=== PATIENT | female | born 1995 | race Caucasian/White ===

== ENCOUNTER 2019-05-10 12:10 | Emergency (ER) | payer MEDICAID ==
[~2019-05-10] VITALS: Ht 149.8 cm; Wt 54.5 kg
[2019-05-10] MEDS ORDERED: KETOROLAC 60 MG/2 ML VIAL IM STA (12:32)
--- NOTE | 2019-05-10 12:32 | ED Upper Extremity ---
General Stated Complaint: NECK PAIN Source: patient Exam Limitations: physical impairment (ALEJANDRO HUFFMAN STUDENT) History of Present Illness Date Seen by Provider: May 10, 2019 Time Seen by Provider: 12:20 Initial Comments Patient presents to the ED today after falling backwards off of her porch while intoxicated last night around 2100. She states she landed on her left shoulder, followed by simultaneously landing on her back and neck. She has limited ROM in the left arm but full ROM on the right. She has been diagnosed in the passed with scoliosis. She claims she did not lose consciousness, however, she did have the wind knocked out of her. She has taken Motrin for the pain which seems to slightly alleviate the symptoms. Onset: yesterday Severity: mild Pain/Injury Location: left shoulder Method of Injury: fell Modifying Factors: Improves With Pain Medication (Motrin slightly alleviates the symptoms) (ALEJANDRO HUFFMAN STUDENT) Allergies and Home Medications Allergies Coded Allergies: acetaminophen (Verified Allergy, Unknown, 05/10/19) oxycodone (Verified Allergy, Unknown, 05/10/19) Patient Home Medication List Home Medication List Reviewed: Yes (HERMINIO CASTANON MD) Review of Systems Constitutional: no symptoms reported EENTM: no symptoms reported Respiratory: no symptoms reported Cardiovascular: no symptoms reported Gastrointestinal: no symptoms reported Genitourinary: no symptoms reported : No Musculoskeletal: see HPI Skin: see HPI Psychiatric/Neurological: No Symptoms Reported (ALEJANDRO HUFFMAN STUDENT) All Other Systems Reviewed Negative Unless Noted: Yes (HERMINIO CASTANON MD) Past Coqbqvp-Plttyh-Jcdrbi Hx Past Med/Social Hx: Reviewed Nursing Past Med/Soc Hx (HERMINIO CASTANON MD) Family Medical History Reviewed Nursing Family Hx (HERMINIO CASTANON MD) Physical Exam Vital Signs Vital Signs - First Documented 05/10/19 12:15 Temp 36.5 Pulse 110 Resp 20 B/P (MAP) 119/67 (84) Pulse Ox 98 O2 Delivery Room Air (HERMINIO CASTANON MD) Vital Signs Capillary Refill : (ALEJANDRO HUFFMAN STUDENT) Height, Weight, BMI Height: '" Weight: lbs. oz. kg; BMI Method: General Appearance: no apparent distress HEENT: PERRL/EOMI, pharynx normal Neck: limited range of motion, tender lateral, tender midline Cardiovascular: normal peripheral pulses, regular rate, rhythm, no edema, no gallop, no JVD, no murmur Respiratory: chest non-tender, lungs clear, normal breath sounds, no respiratory distress, no accessory muscle use Gastrointestinal: normal bowel sounds, non tender, soft, no organomegaly, no pu lsatile mass Back: vertebral tenderness Shoulder: bone tenderness, limited ROM, pain, soft tissue tenderness Elbow/Forearm: normal inspection Wrist: Yes normal inspection, Yes non-tender, Yes no evidence of injury, Yes normal ROM Hand: normal inspection, non-tender, no evidence of injury, normal ROM Neurologic/Tendon: normal sensation, normal motor functions, responds to pain, no evidence tendon injury Neurologic/Psychiatric: alert, normal mood/affect, oriented x 3 Skin: normal color, warm/dry Lymphatic: no adenopathy (ALEJANDRO HUFFMAN PA STUDENT) General Appearance: WD/WN, no apparent distress HEENT: PERRL/EOMI, pharynx normal Neck: full range of motion, limited range of motion; No lymphadenopathy (R), No lymphadenopathy (L); tender lateral Cardiovascular: regular rate, rhythm, no murmur Respiratory: lungs clear, normal breath sounds Gastrointestinal: non tender, soft Shoulder: No deformity; limited ROM (mildly), pain (lateral aspect), soft tissue tenderness (top and medially to the C-spine area); No swelling Elbow/Forearm: normal inspection Wrist: Yes normal inspection, Yes non-tender, Yes no evidence of injury, Yes normal ROM Hand: no evidence of injury, normal ROM, Right, Left Neurologic/Psychiatric: alert, oriented x 3 Skin: normal color, warm/dry (HERMINIO CASTANON MD) Progress/Results/Core Measures Results/Orders My Orders Orders - HERMINIO CASTANON MD Shoulder, Left, 3 Views (05/10/19 12:32) Cervical Spine 3 Views Or Less (05/10/19 12:32) Ketorolac Injection (Toradol Injection) (05/10/19 12:32) (HERMINIO CASTANON MD) Vital Signs/I&O 05/10/19 12:15 Temp 36.5 Pulse 110 Resp 20 B/P (MAP) 119/67 (84) Pulse Ox 98 O2 Delivery Room Air (HERMINIO CASTANON MD) Progress Progress Note : Progress Note I seen and evaluated the patient and agree with above except as indicated. Have directed the plan of care. Patient is here with left shoulder pain and neck pain after falling on her porch onto her back. Denies loss of consciousness. Has full range of motion of her upper extremities but does have pain from the left shoulder to the neck. Take ibuprofen this morning. That did not help much. Toradol 60 mg IM and x-ray of the left shoulder and C-spine ordered. Monitor patient. 1430: No acute findings. Pain is about the same. Discharged home with return precautions. Patient verbalize understanding instructions and agreement with plan. (HERMINIO CASTANON MD) Diagnostic Imaging Diagonstic Imaging: Xray Comments [facility] POS [place], [place] POS NAME: [facility] REC#: [id number] PT STATUS: REG ER : 1995 PHYSICIAN: HERMINIO CASTANON MD ADMIT DATE: 05/10/19/ER Draft POSDate of Exam:05/10/19 CERVICAL SPINE 3 VIEWS OR LESS INDICATION: Fall and neck pain. TIME OF EXAM: 1:05 PM. FINDINGS: Three views of the cervical spine were obtained. The curvature and alignment of the cervical spine are normal. The disc spaces are well-maintained. No fracture or subluxation is seen. The prevertebral tissues are within normal limits. The odontoid is intact. IMPRESSION: No acute bony abnormality is detected. Dictated on workstation # [id number] Dict: 05/10/19 1315 Trans: 05/10/19 1317 [id number] Interpreted by: KYLEE JONES MD Electronically signed by: Diagonstic Imaging: Xray Plain Films/CT/US/NM/MRI: other Comments [facility]. POS [place], [place] POS NAME: [facility] REC#: [id number] PT STATUS: REG ER : 1995 PHYSICIAN: HERMINIO CASTANON MD ADMIT DATE: 05/10/19/ER Draft POSDate of Exam:05/10/19 SHOULDER, LEFT, 3 VIEWS INDICATION: Fall and left shoulder pain. TIME OF EXAM: 01:08 p.m. FINDINGS: Three views of the left shoulder were obtained. Glenohumeral and acromioclavicular alignment is normal. Acromiohumeral space is normal. No fracture or dislocation is seen. IMPRESSION: No acute bony abnormality is detected. Dictated on workstation # [id number] Dict: 05/10/19 1314 Trans: 05/10/19 1316 [id number] Interpreted by: KYLEE JONES MD Electronically signed by: (HERMINIO CASTANON MD) Departure Impression Primary Impression: Neck sprain Qualified Codes: S13.9XXA - Sprain of joints and ligaments of unspecified parts of neck, initial encounter Additional Impression: Contusion of left shoulder Qualified Codes: S40.012A - Contusion of left shoulder, initial encounter Disposition: HOME, SELF-CARE Condition: Improved Departure-Patient Inst. Decision time for Depature: 14:33 (HERMINIO CASTANON MD) Referrals: NO,LOCAL PHYSICIAN (PCP) Primary Care Physician Patient Instructions: Cervical Muscle Strain (DC), Contusion (DC), Shoulder Sprain (DC) Add. Discharge Instructions: You may take ibuprofen 600 mg every 8 hours as needed for pain. You may take Tylenol/acetaminophen 1000 mg every 8 hours as needed for pain. Take other medications as prescribed. You may use [id number] Icy Hot with lidocaine patches, Aspercreme with lidocaine patches, Salonpas with lidocaine patches or similar items to area of concern per package directions. Return for worse pain, fever, vomiting, weakness, breathing problems or other concerns as needed. Scripts Cyclobenzaprine HCl (Cyclobenzaprine HCl) 10 Mg Tablet 10 MG PO Q8H PRN for SPASMS, #10 TAB 0 Refills Prov: HERMINIO CASTANON MD 05/10/19 ALEJANDRO HUFFMAN STUDENT May 10, 2019 12:32 HERMINIO RODRIGUEZ MD May 10, 2019 14:35 POS
--- NOTE | 2019-05-10 13:17 | Diagnostic Imaging Report ---
INDICATION: Fall and left shoulder pain. TIME OF EXAM: 01:08 p.m. FINDINGS: Three views of the left shoulder were obtained. Glenohumeral and acromioclavicular alignment is normal. Acromiohumeral space is normal. No fracture or dislocation is seen. IMPRESSION: No acute bony abnormality is detected. Dictated by: Dictated on workstation # [id number]
--- NOTE | 2019-05-10 13:17 | Diagnostic Imaging Report ---
INDICATION: Fall and neck pain. TIME OF EXAM: 1:05 PM. FINDINGS: Three views of the cervical spine were obtained. The curvature and alignment of the cervical spine are normal. The disc spaces are well-maintained. No fracture or subluxation is seen. The prevertebral tissues are within normal limits. The odontoid is intact. IMPRESSION: No acute bony abnormality is detected. Dictated by: Dictated on workstation # [id number]
[2019-05-10] MEDS ORDERED: CYCL10TA9 PO (14:37)
[2019-05-10 14:42] VITALS: BP 119/67
== END 2019-05-10 14:42 | disposition home or self-care (01) ==
LOC: EDUNIT# 12:10 → ER 12:11
DX: S13.9XXA Sprain of joints and ligaments of unspecified parts of neck, initial encounter (principal); S40.012A Contusion of left shoulder, initial encounter; Z88.6 Allergy status to analgesic agent; Z88.5 Allergy status to narcotic agent; W17.89XA Other fall from one level to another, initial encounter
CPT/HCPCS: 72040; 73030; 96372

== ENCOUNTER 2019-10-08 04:04 | Emergency (ER) | payer SELFPAY ==
[~2019-10-08] VITALS: Ht 149.8 cm; Wt 46.0 kg
[~2019-10-08 04:04] MED LIST: CYCL10TA9 PO
[2019-10-08] MEDS ORDERED: ORPHENADRINE 60 MG/2 ML (NORFLEX) AMP IM ONE (05:00)
[2019-10-08] MEDS ORDERED: KETOROLAC 30 MG/ML VIAL IM ONE (05:00)
[2019-10-08] MEDS ORDERED: TRIAMCINOLONE ACET (KENALOG-40) 40 MG/ML 1 ML VIAL IM ONE (05:45)
[2019-10-08] MEDS ORDERED: LIDOCAINE 1% INJ 20 ML 20 ML VIAL INJ ONE (05:45)
[2019-10-08] MEDS ORDERED: SODIUM BICARB 8.4% 50 MEQ/50 ML VIAL IV ONE (05:45)
--- NOTE | 2019-10-08 06:19 | ED General ---
General Chief Complaint: Upper Extremity Stated Complaint: RT SHOULDER PAIN THAT HAS MOVED TO LEFT SHOULDER T Nursing Triage Note: c/o left shoulder pain x1 day. reports pain started in right shoulder approx. 4 days ago. stated she woke up with pain. denies injury. seen at [facility] 10/08/2019 for same complaint did not fill rx. last dose motrin yesterday. Nursing Sepsis Screen: No Definite Risk Source of Information: Patient Exam Limitations: No Limitations History of Present Illness Date Seen by Provider: Oct 08, 2019 Time Seen by Provider: 04:11 Initial Comments This 24-year-old young lady presents to the emergency room with pain in the right shoulder and neck that started 4 days ago and pain in the left neck and shoulder that started yesterday. She presented to the [facility] walk-in clinic for her right-sided neck pain. She was prescribed a muscle relaxer for muscle spasm. She reports the dose given to her in the clinic was not helpful so she did not fill the prescription. She has been trying ibuprofen which she does not perceive as helpful. There was no known injury. She has extremely tight neck muscles with palpation, especially on the right side. Allergies and Home Medications Allergies Coded Allergies: acetaminophen (Verified Allergy, Unknown, 05/10/19) oxycodone (Verified Allergy, Unknown, 05/10/19) Home Medications Cyclobenzaprine HCl 10 Mg Tablet, 10 MG PO Q8H PRN for SPASMS Prescribed by: HERMINIO CASTANON on 05/10/19 1847 Prednisone 20 Mg Tab, 20 MG PO DAILY Prescribed by: JABIER FERRO on 10/08/19 0620 Patient Home Medication List Home Medication List Reviewed: Yes Review of Systems Review of Systems Constitutional: no symptoms reported EENTM: no symptoms reported Respiratory: no symptoms reported Cardiovascular: no symptoms reported Gastrointestinal: no symptoms reported Genitourinary: no symptoms reported Musculoskeletal: see HPI Skin: no symptoms reported Psychiatric/Neurological: No Symptoms Reported Hematologic/Lymphatic: No Symptoms Reported Immunological/Allergic: no symptoms reported Past Qdytwjz-Ahrkbl-Cbdowl Hx Past Med/Social Hx: Reviewed Nursing Past Med/Soc Hx Patient Social History Alcohol Use: Rarely Uses Recreational Drug Use: Yes Drug of Choice: meth iv Smoking Status: Current Everyday Smoker Type Used: Cigarettes 2nd Hand Smoke Exposure: Yes Recent Foreign Travel: No Contact w/Someone Who Travel: No Recent Infectious Disease Expo: No Recent Hopitalizations: No Physical Abuse: No Sexual Abuse: No Mistreated: No Fear: No Immunizations Up To Date Tetanus Booster (TDap): Unknown PED Vaccines UTD: Yes Seasonal Allergies Seasonal Allergies: No Past Medical History Surgeries: Yes (bmt) Tonsillectomy Respiratory: No Cardiac: No Neurological: No : No Last Menstrual Period: Oct 08, 2019 Genitourinary: No Gastrointestinal: No Musculoskeletal: Yes Scoliosis Endocrine: No HEENT: No Cancer: No Psychosocial: No Integumentary: No Blood Disorders: No Physical Exam Vital Signs Vital Signs - First Documented 10/08/19 04:25 Temp 36.3 Pulse 117 Resp 18 B/P (MAP) 116/95 (102) Pulse Ox 99 O2 Delivery Room Air Capillary Refill : Less Than 3 Seconds Height, Weight, BMI Height: '" Weight: lbs. oz. kg; 20.00 BMI Method: General Appearance: WD/WN, Moderate Distress HEENT: PERRL/EOMI, Normal ENT Inspection Neck: Other (Paraspinous muscles are extremely tense and tender, especially on the right. Trapezius muscles are also tight and tender, especially the distal third of the left trapezius.) Respiratory: Lungs Clear, Normal Breath Sounds, No Accessory Muscle Use, No Respiratory Distress Cardiovascular: Regular Rate, Rhythm, No Edema, No Murmur Extremity: Normal Inspection, Non Tender Neurologic/Psychiatric: Alert, Oriented x3, No Motor/Sensory Deficits, Normal Mood/Affect, pe teacher II-XII Norm as Tested Skin: Normal Color, Warm/Dry Procedures/Interventions Progress With verbal informed consent patient received targeted injection therapy in the right neck and left trapezius muscles. A mixture of triamcinolone 40 mg, 1 mL 1 percent lidocaine, and 0.5 ML sodium bicarbonate was used for the injections. This was divided roughly equally amongst 3 injections in the right paraspinous muscles and one injection at the most tender point in the left trapezius muscle. Skin was scrubbed with alcohol and chlorhexidine wipes prior to administration and sterile gloves were used. Patient had immediate relief within minutes of the injections. Progress/Results/Core Measures Suspected Sepsis Recent Fever Within 48 Hours: No Infection Criteria Present: None New/Unexplained Altered Menta: No Sepsis Screen: No Definite Risk SIRS Temperature: Pulse: 117 Respiratory Rate: 18 Blood Pressure 116 /95 Mean: 102 Results/Orders My Orders Orders - BRUEGGEMANN,JABIER T MD Ketorolac Injection (Toradol Injection) (10/08/19 05:00) Orphenadrine Injection (Norflex Injectio (10/08/19 05:00) Sodium Bicarbonate 8.4% Vial (Sodium Bic (10/08/19 05:45) Lidocaine 1% Inj 20 Ml (Xylocaine 1% Inj (10/08/19 05:45) Triamcinolone Acetonide Im (Kenalog-40) (10/08/19 05:45) Medications Given in ED Current Medications Medications Dose Ordered Sig/Aldo Route Start Time Stop Time Status Last Admin Dose Admin Ketorolac Tromethamine 30 mg ONCE ONCE IM 10/08/19 05:00 10/08/19 05:01 DC 10/08/19 05:04 30 MG Lidocaine HCl 20 ml ONCE ONCE INJ 10/08/19 05:45 10/08/19 05:46 DC 10/08/19 05:50 20 ML Orphenadrine Citrate 30 mg ONCE ONCE IM 10/08/19 05:00 10/08/19 05:01 DC 10/08/19 05:04 30 MG Sodium Bicarbonate 50 meq ONCE ONCE IV 10/08/19 05:45 10/08/19 05:46 DC 10/08/19 05:50 50 MEQ Triamcinolone Acetonide 40 mg ONCE ONCE IM 10/08/19 05:45 10/08/19 05:46 DC 10/08/19 05:50 40 MG Vital Signs/I&O 10/08/19 10/08/19 04:25 06:22 Temp 36.3 36.4 Pulse 117 116 Resp 18 18 B/P (MAP) 116/95 (102) 119/78 (102) Pulse Ox 99 98 O2 Delivery Room Air Room Air Capillary Refill : Less Than 3 Seconds Blood Pressure Mean: 102 Progress Note : Progress Note Patient was treated with injections of Toradol and Norflex with some improvement. We discussed further treatment possibilities including targeted m uscle injections. She wished to proceed with the targeted injections. A mixture of lidocaine, sodium bicarbonate, and triamcinolone was used to inject the right neck and left trapezius muscle. She had excellent results. Departure Impression Primary Impression: Muscle spasms of neck Additional Impression: Spasm of thoracic back muscle Disposition: HOME, SELF-CARE Condition: Improved Departure-Patient Inst. Decision time for Depature: 06:17 Referrals: NO,LOCAL PHYSICIAN (PCP/Family) Primary Care Physician Patient Instructions: Muscle Spasms (DC) Add. Discharge Instructions: You may take ibuprofen up to 400 mg every 6 hours as needed for primary pain co ntrol. Add Tylenol (acetaminophen) up to 650 mg every 6 hours as needed for additional pain relief. You may ice in 20 minute intervals as needed for the first 24 hours. Then try gentle heat. You may gently stretch your neck muscles by allowing gravity to gently pull your head forward. Gently massage in your neck muscles may help distribute the steroid for better results. You may use the sling for comfort. If you're not experiencing significant improvement by Friday, you may fill the prednisone prescription. You may use the muscle relaxer previously prescribed. Contact your doctor or return to care if symptoms are not improving as expected over the next few days or if you have worsening symptoms. All discharge instructions reviewed with patient and/or family. Voiced understanding. Scripts Prednisone (Prednisone) 20 Mg Tab 20 MG PO DAILY, #4 TAB 0 Refills Prov: JABIER SALAZAR MD 10/08/19 JABIER SALAZAR MD Oct 08, 2019 06:19
[2019-10-08] MEDS ORDERED: PRD20T PO (06:20)
[2019-10-08 06:22] VITALS: BP 119/78
== END 2019-10-08 06:26 | disposition home or self-care (01) ==
LOC: EDUNIT# 04:04 → ER 04:09
DX: M62.830 Muscle spasm of back (principal); M62.838 Other muscle spasm; F17.210 Nicotine dependence, cigarettes, uncomplicated; Z88.5 Allergy status to narcotic agent; Z90.89 Acquired absence of other organs
CPT/HCPCS: 96372; 96374; 99284

== ENCOUNTER 2020-02-15 22:02 | Emergency (ER) | payer SELFPAY ==
[~2020-02-15] VITALS: Ht 149 cm; Wt 46.0 kg
[~2020-02-15 22:02] MED LIST changes: +PRD20T PO
[2020-02-16] MEDS ORDERED: LACTATED RINGERS 1,000 ML IV ONE (02:17)
[2020-02-16 02:19] LABS: BASOPHILS % (AUTO) 0 % (0-10); EOSINOPHILS # (AUTO) 0.1 10^3/uL (0.0-0.3); EOSINOPHILS % (AUTO) 2 % (0-10); HEMATOCRIT 41 % (35-52); HEMOGLOBIN 13.6 G/DL (11.5-16.0); LYMPHOCYTES # (AUTO) 2.5 X 10^3 (1.0-4.0); LYMPHOCYTES % (AUTO) 36 % (12-44); MEAN CORPUSCULAR HEMOGLOBIN 30 PG (25-34); MEAN CORPUSCULAR HGB CONC 34 G/DL (32-36); MEAN CORPUSCULAR VOLUME 89 FL (80-99); MEAN PLATELET VOLUME 10.8 FL (7.4-10.4); MONOCYTES # (AUTO) 0.6 X 10^3 (0.0-1.0); MONOCYTES % (AUTO) 9 % (0-12); NEUTROPHILS # (AUTO) 3.6 X 10^3 (1.8-7.8); NEUTROPHILS % (AUTO) 53 % (42-75); PLATELET COUNT 282 10^3/uL (130-400); RED CELL DISTRIBUTION WIDTH 13.9 % (10.0-14.5); WHITE BLOOD COUNT 6.9 10^3/uL (4.3-11.0)
--- NOTE | 2020-02-16 02:35 | ED General ---
General Stated Complaint: HEAD/STOMACH PAIN,SOA Source of Information: Patient History of Present Illness Date Seen by Provider: Feb 16, 2020 Time Seen by Provider: 01:57 Initial Comments PT ARRIVES VIA POV STATES SHE IS "HAVING SHARP PAINS IN MY STOMACH AND IN MY HEAD" STATES PAIN IN HEAD IS ON LEFT SIDE OF HEAD AND "WHOLE LEFT SIDE OF MY FACE-LIKE SINUS PRESSURE" AND HEAD PAIN STARTED YESTERDAY STATES PAIN IN ABDOMEN IS ALL ACROSS LOWER ABDOMEN--THEN STATES "IT MIGHT BE BECAUSE I'M ON MY PERIOD--IT FEELS LIKE MY UTERUS" --ABDOMINAL PAIN BEGAN 2 HOURS PRIOR TO ARRIVAL NO NAUSEA/VOMITING/DIARRHEA. HAD NORMAL BM TODAY NO FEVER NO NASAL CONGESTION OR DRAINAGE NO CHEST PAIN OR SHORTNESS OF BREATH NO COUGH NO VISION CHANGES NO PARESTHESIAS OR MOTOR DEFICITS TOOK 2 IBUPROFEN YESTERDAY MORNING FOR HEADACHE, OTHERWISE HAS NOT TAKEN ANYTHING ELSE FOR PAIN LMP--BEGAN 4 DAYS AGO. 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 ALSO SMOKES 1/2 PPPD PCP: GLEN Allergies and Home Medications Allergies Coded Allergies: acetaminophen (Verified Allergy, Unknown, 05/10/19) oxycodone (Verified Allergy, Unknown, 05/10/19) Home Medications Cyclobenzaprine HCl 10 Mg Tablet, 10 MG PO Q8H PRN for SPASMS Prescribed by: HERMINIO CASTANON on 05/10/19 1437 Naproxen 500 Mg Tablet.dr, 500 MG PO BID Prescribed by: KAYLYN PRICE on 02/16/20 050 Nitrofurantoin Monohyd/M-Cryst 100 Mg Capsule, 1 TAB PO BID Prescribed by: KAYLYN PRICE on 02/16/20 050 Phenazopyridine HCl 200 Mg Tablet, 1 TAB PO TID Prescribed by: KAYLYN PRICE on 02/16/20 050 Prednisone 20 Mg Tab, 20 MG PO DAILY Prescribed by: JABIER FERRO on 10/08/19 0620 Patient Home Medication List Home Medication List Reviewed: Yes Review of Systems Review of Systems Constitutional: no symptoms reported; No chills, No diaphoresis, No dizziness, No fever EENTM: see HPI; No ear pain, No nose congestion, No throat pain Respiratory: no symptoms reported; No cough, No short of breath Cardiovascular: no symptoms reported; No chest pain Gastrointestinal: see HPI, abdominal pain; No diarrhea, No nausea, No vomiting Genitourinary: no symptoms reported : No LMP: Feb 12, 2020 Musculoskeletal: no symptoms reported; No back pain, No neck pain Skin: no symptoms reported Psychiatric/Neurological: See HPI, Headache; Denies Numbness, Denies Paresthesia, Denies Tingling, Denies Weakness Hematologic/Lymphatic: No Symptoms Reported Immunological/Allergic: no symptoms reported Past Oitleph-Ecgvkj-Kkktmu Hx Past Med/Social Hx: Reviewed and Corrections made Patient Social History Alcohol Use: Rarely Uses Recreational Drug Use: Yes (+IV METH USE) Drug of Choice: + IV METH USE Smoking Status: Current Everyday Smoker (1/2 PPD) Type Used: Cigarettes (1/2 PPD) 2nd Hand Smoke Exposure: Yes Recent Foreign Travel: No Contact w/Someone Who Travel: No Recent Hopitalizations: No Immunizations Up To Date Tetanus Booster (TDap): Unknown PED Vaccines UTD: Yes Seasonal Allergies Seasonal Allergies: No Past Medical History Surgeries: Yes (BMT'S) Ear Surgery, Tonsillectomy Respiratory: No Cardiac: No Neurological: Yes (TENSION HEADACHES) Headaches /Migraines Female Reproductive Disorders: Denies Genitourinary: No Gastrointestinal: Yes ("SEPTIC SHOCK FROM SMALL BOWEL OBSTRUCTION" --NO SURGERY) Obstructive Bowel Musculoskeletal: Yes Scoliosis Endocrine: No HEENT: Yes (S/P BMT'S AND TONSILLECTOMY) Chronic Ear Infection, Tonsilitis Cancer: No Psychosocial: No Integumentary: No Blood Disorders: No Physical Exam Vital Signs Vital Signs - First Documented 02/15/20 02/16/20 22:11 05:08 Temp 36.4 Pulse 89 Resp 18 B/P (MAP) 112/79 (90) Pulse Ox 98 O2 Delivery Room Air Capillary Refill : Height, Weight, BMI Height: '" Weight: lbs. oz. kg; 20.00 BMI Method: General Appearance: No Apparent Distress, WD/WN, Thin, Other (HAIR DYED AQUA COLOR, LEFT SIDE OF HEAD SHAVED) HEENT: PERRL/EOMI, TMs Normal, Normal ENT Inspection, Pharynx Normal, Other (TENDERNESS TO LEFT FOREHEAD AND LEFT MAXILLARY AREA) Neck: Full Range of Motion, Normal Inspection, Non Tender, Supple Respiratory: Chest Non Tender, Normal Breath Sounds, No Accessory Muscle Use, No Respiratory Distress Cardiovascular: Regular Rate, Rhythm, No Edema, No JVD, No Murmur, Normal Peripheral Pulses Gastrointestinal: Normal Bowel Sounds, No Organomegaly, No Pulsatile Mass, Soft; No Distended, No Guarding, No Hepatomegaly, No Hernia, No Mass, No Rebound; Tenderness (VERY MILD TENDERNESS TO DEEP PALPATION IN LUQ AND SUPRAPUBIC AREA. ) Back: Normal Inspection, No CVA Tenderness, No Vertebral Tenderness Extremity: Normal Capillary Refill, Normal Inspection, Normal Range of Motion, Non Tender, No Calf Tenderness, No Pedal Edema Neurologic/Psychiatric: Alert, Oriented x3, No Motor/Sensory Deficits, Normal Mood/Affect, anodizer II-XII Norm as Tested Skin: Normal Color, Warm/Dry Progress/Results/Core Measures Suspected Sepsis SIRS Temperature: Pulse: Respiratory Rate: Laboratory Tests 02/16/20 02:08: White Blood Count 6.9 Blood Pressure / Mean: Laboratory Tests 02/16/20 02:08: Creatinine 0.69, Platelet Count 282, Total Bilirubin 0.2 Results/Orders Lab Results Laboratory Tests Test 02/16/20 02:08 02/16/20 03:25 Range/Units White Blood Count 6.9 4.3-11.0 10^3/uL Red Blood Count 4.55 4.35-5.85 10^6/uL Hemoglobin 13.6 11.5-16.0 G/DL Hematocrit 41 35-52 % Mean Corpuscular Volume 89 80-99 FL Mean Corpuscular Hemoglobin 30 25-34 PG Mean Corpuscular Hemoglobin Concent 34 32-36 G/DL Red Cell Distribution Width 13.9 10.0-14.5 % Platelet Count 282 130-400 10^3/uL Mean Platelet Volume 10.8 H 7.4-10.4 FL Neutrophils (%) (Auto) 53 42-75 % Lymphocytes (%) (Auto) 36 12-44 % Monocytes (%) (Auto) 9 0-12 % Eosinophils (%) (Auto) 2 0-10 % Basophils (%) (Auto) 0 0-10 % Neutrophils # (Auto) 3.6 1.8-7.8 X 10^3 Lymphocytes # (Auto) 2.5 1.0-4.0 X 10^3 Monocytes # (Auto) 0.6 0.0-1.0 X 10^3 Eosinophils # (Auto) 0.1 0.0-0.3 10^3/uL Basophils # (Auto) 0.0 0.0-0.1 10^3/uL Sodium Level 142 135-145 MMOL/L Potassium Level 3.7 3.6-5.0 MMOL/L Chloride Level 108 H 98-107 MMOL/L Carbon Dioxide Level 22 21-32 MMOL/L Anion Gap 12 5-14 MMOL/L Blood Urea Nitrogen 15 7-18 MG/DL Creatinine 0.69 0.60-1.30 MG/DL Estimat Glomerular Filtration Rate > 60 BUN/Creatinine Ratio 22 Glucose Level 118 H 70-105 MG/DL Calcium Level 9.2 8.5-10.1 MG/DL Corrected Calcium 8.9 8.5-10.1 MG/DL Magnesium Level 2.3 1.6-2.4 MG/DL Total Bilirubin 0.2 0.1-1.0 MG/DL Aspartate Amino Transf (AST/SGOT) 17 5-34 U/L Alanine Aminotransferase (ALT/SGPT) 13 0-55 U/L Alkaline Phosphatase 66 40-136 U/L Total Protein 7.5 6.4-8.2 GM/DL Albumin 4.4 3.2-4.5 GM/DL Amylase Level 38 25-125 U/L Lipase 29 8-78 U/L Serum Test, Qualitative NEGATIVE NEGATIVE Serum Alcohol < 10 <10 MG/DL Urine Color YELLOW Urine Clarity CLOUDY Urine pH 7.0 5-9 Urine Specific Orange 1.020 1.016-1.022 Urine Protein NEGATIVE NEGATIVE Urine Glucose (UA) NEGATIVE NEGATIVE Urine Ketones TRACE H NEGATIVE Urine Nitrite NEGATIVE NEGATIVE Urine Bilirubin NEGATIVE NEGATIVE Urine Urobilinogen 0.2 < = 1.0 MG/DL Urine Leukocyte Esterase NEGATIVE NEGATIVE Urine RBC (Auto) 2+ H NEGATIVE Urine RBC 0-2 /HPF Urine WBC 2-5 /HPF Urine Squamous Epithelial Cells 0-2 /HPF Urine Crystals NONE /LPF Urine Bacteria FEW H /HPF Urine Casts NONE /LPF Urine Mucus SMALL H /LPF Urine Other /HPF Urine Yeast FEW H /HPF Urine Culture Indicated YES Urine Opiates Screen NEGATIVE NEGATIVE Urine Oxycodone Screen NEGATIVE NEGATIVE Urine Methadone Screen NEGATIVE NEGATIVE Urine Propoxyphene Screen NEGATIVE NEGATIVE Urine Barbiturates Screen NEGATIVE NEGATIVE Ur Tricyclic Antidepressants Screen NEGATIVE NEGATIVE Urine Phencyclidine Screen NEGATIVE NEGATIVE Urine Amphetamines Screen POSITIVE H NEGATIVE Urine Methamphetamines Screen NEGATIVE NEGATIVE Urine Benzodiazepines Screen NEGATIVE NEGATIVE Urine Cocaine Screen NEGATIVE NEGATIVE Urine Cannabinoids Screen NEGATIVE NEGATIVE My Orders Orders - KAYLYN PRICE DO Ed Iv/Invasive Line Start (02/16/20 02:06) Urine Bedside (02/16/20 02:06) Alcohol (02/16/20 02:06) Amylase (02/16/20 02:06) Cbc With Automated Diff (02/16/20 02:06) Comprehensive Metabolic Panel (02/16/20 02:06) Drug Screen Stat (Urine) (02/16/20 02:06) Lipase (02/16/20 02:06) Magnesium (02/16/20 02:06) Ua Culture If Indicated (02/16/20 02:06) Ed Iv/Invasive Line Start (02/16/20 02:17) Lactated Ringers (Lr 1000 Ml Iv Solution (02/16/20 02:17) Hcg,Qualitative Serum (02/16/20 02:51) Ct Abdomen/Pelvis W (02/16/20 03:20) Ketorolac Injection (Toradol Injection) (02/16/20 03:30) Urine Culture (02/16/20 03:25) Iohexol Injection (Omnipaque 350 Mg/Ml 1 (02/16/20 04:15) Received Contrast (Hold Metformin- Contr (02/16/20 04:15) Ns (Ivpb) (Sodium Chloride 0.9% Ivpb Bag (02/16/20 04:15) Medications Given in ED Current Medications Medications Dose Ordered Sig/Aldo Route Start Time Stop Time Status Last Admin Dose Admin Iohexol 100 ml ONCE ONCE IV 02/16/20 04:15 02/16/20 04:16 DC 02/16/20 04:05 75 ML Ketorolac Tromethamine 30 mg ONCE ONCE IVP 02/16/20 03:30 02/16/20 03:31 DC 02/16/20 04:05 30 MG Lactated Ringer's 1,000 ml @ 0 mls/hr Q0M ONCE IV 02/16/20 02:17 02/16/20 02:18 DC 02/16/20 02:33 0 MLS/HR Sodium Chloride 100 ml ONCE ONCE IV 02/16/20 04:15 02/16/20 04:16 DC 02/16/20 04:05 80 ML Vital Signs/I&O 02/15/20 02/16/20 22:11 05:08 Temp 36.4 36.4 Pulse 89 76 Resp 18 16 B/P (MAP) 112/79 (90) 90/51 (90) Pulse Ox 98 O2 Delivery Room Air Room Air Capillary Refill : Progress Note : Progress Note GIVEN TORADOL FOR PAIN WITH IMPROVEMENT NO DETERIORATION IN PT'S CONDITION DURING ER STAY PT SLEPT SOUNDLY FOR REMAINDER OF ER STAY Diagnostic Imaging Comments CT ABDOMEN/PELVIS--NO ACUTE PROCESS, PER RADIOLOGIST REPORT AT 0442 Reviewed: Reviewed by Me Departure Impression Primary Impression: Urinary tract infection Additional Impression: Illicit drug use Disposition: HOME, SELF-CARE Condition: Improved Departure-Patient Inst. Referrals: NO,LOCAL PHYSICIAN (PCP/Family) Primary Care Physician Patient Instructions: Urinary Tract Infection, Adult (DC) Add. Discharge Instructions: HOME, REST LOTS OF CLEAR LIQUIDS--NO COFFEE, POP OR TEA NO DRUGS FOLLOW UP WITH YOUR DR IN 4-5 DAYS FOR FURTHER CARE Scripts Naproxen (Naproxen) 500 Mg Tablet.dr 500 MG PO BID, #20 TAB Prov: KAYLYN PRICE DO 02/16/20 Phenazopyridine HCl (Pyridium) 200 Mg Tablet 1 TAB PO TID, #15 TAB Prov: KAYLYN PRICE DO 02/16/20 Nitrofurantoin Monohyd/M-Cryst (Macrobid 100 mg Capsule) 100 Mg Capsule 1 TAB PO BID, #20 CAP Prov: KAYLYN PRICE DO 02/16/20 KAYLYN PRICE DO Feb 16, 2020 02:35
[2020-02-16 02:48] LABS: ALANINE AMINOTRANSFERASE 13 U/L (0-55); ALBUMIN 4.4 GM/DL (3.2-4.5); ALKALINE PHOSPHATASE 66 U/L (40-136); AMYLASE 38 U/L (25-125); BILIRUBIN,TOTAL 0.2 MG/DL (0.1-1.0); BUN/CREATININE RATIO 22; CALCIUM 9.2 MG/DL (8.5-10.1); CARBON DIOXIDE 22 MMOL/L (21-32); CHLORIDE 108 MMOL/L (98-107); CREATININE SERUM 0.69 MG/DL (0.60-1.30); GFR ESTIMATED > 60; GLUCOSE 118 MG/DL (70-105); LIPASE 29 U/L (8-78); MAGNESIUM 2.3 MG/DL (1.6-2.4); POTASSIUM 3.7 MMOL/L (3.6-5.0); SODIUM 142 MMOL/L (135-145); TOTAL PROTEIN 7.5 GM/DL (6.4-8.2)
[2020-02-16] MEDS ORDERED: KETOROLAC 30 MG/ML VIAL IVP ONE (03:30)
[2020-02-16 03:38] LABS: BILIRUBIN,URINE NEGATIVE (NEGATIVE); CLARITY,URINE CLOUDY; COLOR,URINE YELLOW; GLUCOSE, URINE (UA) NEGATIVE (NEGATIVE); KETONES,URINE TRACE (NEGATIVE); LEUKOCYTE ESTERASE ,URINE NEGATIVE (NEGATIVE); NITRITE,URINE NEGATIVE (NEGATIVE); PROTEIN,URINE NEGATIVE (NEGATIVE)
[2020-02-16 03:48] LABS: BACTERIA,URINE FEW /HPF; RBC,URINE 0-2 /HPF; SQUAMOUS EPITHELIAL CELL,UR 0-2 /HPF; YEAST,URINE FEW /HPF
[2020-02-16 03:50] LABS: AMPHETAMINE SCREEN, URINE POSITIVE (NEGATIVE); BARBITURATE SCREEN URINE NEGATIVE (NEGATIVE); BENZODIAZEPINES SCREEN URINE NEGATIVE (NEGATIVE); CANNABINOID SCREEN, URINE NEGATIVE (NEGATIVE); COCAINE SCREEN URINE NEGATIVE (NEGATIVE); METHADONE STAT NEGATIVE (NEGATIVE); METHAMPHETAMINE SCREEN URINE S NEGATIVE (NEGATIVE); OPIATE SCREEN URINE NEGATIVE (NEGATIVE); OXYCODONE STAT NEGATIVE (NEGATIVE); PROPOXYPHENE STAT NEGATIVE (NEGATIVE); TRICYCLIC ANTIDEPRESSANTS SCRE NEGATIVE (NEGATIVE)
[2020-02-16] MEDS ORDERED: NS 100 ML (IVPB) BAG IV ONE (04:15)
[2020-02-16] MEDS ORDERED: IOHEXOL 350 MG/ML 100 ML (OMNIPAQUE 350) VIAL IV ONE (04:15)
[2020-02-16] MEDS ORDERED: HOLD METFORMIN - RECEIVED CONTRAST 20 ML VIAL IV SCH (04:15)
[2020-02-16] MEDS ORDERED: PHEN-640 PO ×2 (04:52→05:07)
[2020-02-16] MEDS ORDERED: NAPR500T8 PO ×2 (04:52→05:07)
[2020-02-16] MEDS ORDERED: NITR-65 PO ×2 (04:52→05:07)
[2020-02-16 05:08] VITALS: BP 90/51
--- NOTE | 2020-02-16 07:22 | Diagnostic Imaging Report ---
PROCEDURE: CT abdomen and pelvis with contrast. TECHNIQUE: Multiple contiguous axial images were obtained through the abdomen and pelvis after administration of intravenous contrast. Auto Exposure Controls were utilized during the CT exam to meet ALARA standards for radiation dose reduction. INDICATION: Sharp abdominal pain. FINDINGS: Lung bases are clear. There is mild fatty infiltration of the liver. Gallbladder is not distended. Bile ducts are not dilated. The pancreas and spleen appear normal. The adrenal glands are normal. Kidneys appear normal. There is normal enhancement of the abdominal organs and vessels following IV contrast. The stomach is not distended. There are multiple fluid-filled loops of small bowel in the left upper quadrant. Question of mild diffuse thickening of the jejunal bowel wall. The ileum appears normal. The appendix is not dilated. The colon shows normal stooling gas pattern without bowel wall thickening. No findings to indicate colitis or diverticulitis. Uterus is not enlarged. There are no pelvic masses. Bladder appears normal. No free air or free fluid. No intra-abdominal adenopathy of pathologic size. No bony abnormalities. IMPRESSION: Fluid-filled loops of proximal small bowel with question of mild bowel wall thickening in the jejunum. This could be secondary to enteritis or mild inflammatory changes. The remainder of the abdomen appears normal. These findings were not mentioned on the preliminary report. Dictated by: Dictated on workstation # [id number]
== END 2020-02-16 05:09 | disposition home or self-care (01) ==
LOC: EDUNIT# 22:02 → ER 22:03
DX: N39.0 Urinary tract infection, site not specified (principal); F15.10 Other stimulant abuse, uncomplicated; G43.909 Migraine, unspecified, not intractable, without status migrainosus; F17.210 Nicotine dependence, cigarettes, uncomplicated; Z88.5 Allergy status to narcotic agent; Z79.52 Long term (current) use of systemic steroids
CPT/HCPCS: 74177; 80053; 80306; 81000; 82150; 83690; 83735; 84703; 85025; 87088; 99284; G0480; 36415; 80320; 96361; 96374

== ENCOUNTER 2020-02-20 14:38 | Emergency (ER) | payer SELFPAY ==
[~2020-02-20] VITALS: Ht 152 cm; Wt 46.0 kg
[~2020-02-20 14:38] MED LIST changes: +NAPR500T8 PO; +NITR-65 PO; +PHEN-640 PO
--- NOTE | 2020-02-20 14:58 | ED Upper Extremity ---
General Chief Complaint: Laceration Stated Complaint: L HAND LAC Nursing Triage Note: c/o laceration to fingers on left hand Nursing Sepsis Screen: No Definite Risk Source: patient Exam Limitations: no limitations History of Present Illness Date Seen by Provider: Feb 20, 2020 Time Seen by Provider: 14:56 Initial Comments To ER with c/o laceration from hedge trimmers to midde and ring finger left hand. 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 Onset: just prior to arrival Severity: moderate Pain/Injury Location: left 3rd finger, left 4th finger Method of Injury: direct blow Modifying Factors: Worse With Movement Allergies and Home Medications Allergies Coded Allergies: acetaminophen (Verified Allergy, Unknown, 05/10/19) oxycodone (Verified Allergy, Unknown, 05/10/19) Home Medications Cyclobenzaprine HCl 10 Mg Tablet, 10 MG PO Q8H PRN for SPASMS Prescribed by: HERMINIO CASTANON on 05/10/19 1437 Naproxen 500 Mg Tablet.dr, 500 MG PO BID Prescribed by: KAYLYN PRICE on 02/16/20 050 Nitrofurantoin Monohyd/M-Cryst 100 Mg Capsule, 1 TAB PO BID Prescribed by: KAYLYN PRICE on 02/16/20 050 Phenazopyridine HCl 200 Mg Tablet, 1 TAB PO TID Prescribed by: KAYLYN PRICE on 02/16/20 050 Prednisone 20 Mg Tab, 20 MG PO DAILY Prescribed by: JABIER FERRO on 10/08/19 0620 Patient Home Medication List Home Medication List Reviewed: Yes Review of Systems Constitutional: see HPI EENTM: see HPI Respiratory: no symptoms reported Cardiovascular: no symptoms reported Genitourinary: no symptoms reported Musculoskeletal: see HPI Skin: see HPI Psychiatric/Neurological: No Symptoms Reported Past Kklxyci-Kyojhb-Zpyraa Hx Patient Social History Alcohol Use: Occasionally Uses Recreational Drug Use: Yes Drug of Choice: + IV METH USE Type Used: Cigarettes 2nd Hand Smoke Exposure: Yes Recent Foreign Travel: No Contact w/Someone Who Travel: No Recent Infectious Disease Expo: No Recent Hopitalizations: No Immunizations Up To Date Tetanus Booster (TDap): Unknown PED Vaccines UTD: Yes Seasonal Allergies Seasonal Allergies: No Past Medical History Surgeries: Yes (BMT'S) Ear Surgery, Tonsillectomy Respiratory: No Cardiac: No Neurological: Yes (TENSION HEADACHES) Headaches /Migraines Female Reproductive Disorders: Denies Genitourinary: No Gastrointestinal: Yes ("SEPTIC SHOCK FROM SMALL BOWEL OBSTRUCTION" --NO SURGERY) Obstructive Bowel Musculoskeletal: Yes Scoliosis Endocrine: No HEENT: Yes (S/P BMT'S AND TONSILLECTOMY) Chronic Ear Infection, Tonsilitis Cancer: No Psychosocial: Yes ADD/ADHD, Anxiety, Depression Integumentary: No Blood Disorders: No Physical Exam Vital Signs Vital Signs - First Documented 02/20/20 14:41 Temp 36.2 Pulse 104 Resp 18 B/P (MAP) 120/75 (90) Pulse Ox 98 Capillary Refill : Less Than 3 Seconds Height, Weight, BMI Height: '" Weight: lbs. oz. kg; 19.00 BMI Method: General Appearance: WD/WN, no apparent distress, thin, other (anxious, appears under the influence of stimulant. ) Neck: non-tender, full range of motion Respiratory: normal breath sounds, no respiratory distress, no accessory muscle use Gastrointestinal: normal bowel sounds, non tender Shoulder: normal inspection, non-tender Elbow/Forearm: normal inspection, non-tender, no evidence of injury Hand: Left, laceration Neurologic/Psychiatric: alert, normal mood/affect, oriented x 3 Skin: normal color, warm/dry Progress/Results/Core Measures Results/Orders My Orders Orders - HERO MAYORGA APRN Dipht,Pertgonzalo(Acell),Tet Adult (Boostrix (02/20/20 15:00) Lidocaine 1% Inj 20 Ml (Xylocaine 1% Inj (02/20/20 15:00) Medications Given in ED Current Medications Medications Dose Ordered Sig/Aldo Route Start Time Stop Time Status Last Admin Dose Admin Diphtheria/ Tetanus/Acell Pertussis 0.5 ml ONCE ONCE IM 02/20/20 15:00 02/20/20 15:01 DC 02/20/20 15:31 0.5 ML Lidocaine HCl 20 ml ONCE ONCE INJ 02/20/20 15:00 02/20/20 15:01 DC 02/20/20 15:20 20 ML Vital Signs/I&O 02/20/20 14:41 Temp 36.2 Pulse 104 Resp 18 B/P (MAP) 120/75 (90) Pulse Ox 98 Blood Pressure Mean: 90 Departure Communication (Admissions) 1.5cm laceration to distal pad of middle and ring finger for total of 3cm. depth to sub q tissues. digital block done with 8ml of buffered 1% lidocaine without epi. Closed with total of 7 simple interrupted sutures size 5-0 ethilon. Impression Primary Impression: Finger laceration Qualified Codes: S61.213A - Laceration without foreign body of left middle finger without damage to nail, initial encounter Disposition: 01 HOME, SELF-CARE Condition: Stable Departure-Patient Inst. Decision time for Depature: 14:57 Referrals: [facility] [place] (PCP/Family) Primary Care Physician Patient Instructions: Laceration Repair With Stitches (DC) Add. Discharge Instructions: 1. keep stitches clean and dry. return to er in 10 days for stitch removal. you may take the bandage off tomorrow and replace with a simple bandaid. return to er for any concerns All discharge instructions reviewed with patient and/or family. Voiced understanding. Scripts Acetaminophen/Diphenhydramine (Percogesic 325-12.5 mg Tablet) 1 Each Tablet 2 EACH PO Q4H PRN for PAIN-MODERATE (5-7), #14 TAB Prov: HERO MAYORGA APRN 02/20/20 HERO MAYORGA APRN Feb 20, 2020 14:58
[2020-02-20] MEDS ORDERED: LIDOCAINE 1% INJ 20 ML 20 ML VIAL INJ ONE (15:00)
[2020-02-20] MEDS ORDERED: TETANUS,DIPTH,PERTUSS P/F (BOOSTRIX) 0.5 ML VIAL IM ONE (15:00)
[2020-02-20] MEDS ORDERED: ACET-1672 PO (15:37)
[2020-02-20 15:49] VITALS: BP 120/75
== END 2020-02-20 15:49 | disposition home or self-care (01) ==
LOC: EDUNIT# 14:38 → ER 14:39
DX: S61.213A Laceration without foreign body of left middle finger without damage to nail, initial encounter (principal); S61.215A Laceration without foreign body of left ring finger without damage to nail, initial encounter; G43.909 Migraine, unspecified, not intractable, without status migrainosus; Z88.6 Allergy status to analgesic agent; Z88.5 Allergy status to narcotic agent; Z79.52 Long term (current) use of systemic steroids; Z77.22 Contact with and (suspected) exposure to environmental tobacco smoke (acute) (chronic); Z23 Encounter for immunization; W29.3XXA Contact with powered garden and outdoor hand tools and machinery, initial encounter
CPT/HCPCS: 12002; 12031; 64450; 90715

== ENCOUNTER 2020-05-16 13:15 | Inpatient (IN) | payer SELFPAY ==
[~2020-05-16] VITALS: Ht 149.8 cm; Wt 44.8 kg
[~2020-05-16 13:15] MED LIST changes: +ACET-1672 PO
--- NOTE | 2020-05-16 14:40 | NUR ---
Medical student reports that pt reported to student that pt had COVID exposure about one week ago and has lost smell and taste.
[2020-05-16 14:59] LABS: BASOPHILS # (AUTO) 0.1 10^3/uL (0.0-0.1); BASOPHILS % (AUTO) 0 % (0-10); EOSINOPHILS # (AUTO) 0.1 10^3/uL (0.0-0.3); EOSINOPHILS % (AUTO) 0 % (0-10); HEMATOCRIT 43 % (35-52); HEMOGLOBIN 14.1 g/dL (11.5-16.0); LYMPHOCYTES # (AUTO) 1.8 10^3/uL (1.0-4.0); LYMPHOCYTES % (AUTO) 10 % (12-44); MEAN CORPUSCULAR HEMOGLOBIN 29 pg (25-34); MEAN CORPUSCULAR HGB CONC 33 g/dL (32-36); MEAN CORPUSCULAR VOLUME 89 fL (80-99); MEAN PLATELET VOLUME 10.4 fL (9.0-12.2); MONOCYTES % (AUTO) 5 % (0-12); NEUTROPHILS # (AUTO) 14.8 10^3/uL (1.8-7.8); NEUTROPHILS % (AUTO) 83 % (42-75); PLATELET COUNT 328 10^3/uL (130-400); WHITE BLOOD COUNT 17.8 10^3/uL (4.3-11.0)
[2020-05-16 15:04] LABS: ALBUMIN 4.7 GM/DL (3.2-4.5); CHLORIDE 100 MMOL/L (98-107); POTASSIUM 3.9 MMOL/L (3.6-5.0); SODIUM 136 MMOL/L (135-145)
[2020-05-16 15:06] LABS: CALCIUM 9.8 MG/DL (8.5-10.1)
[2020-05-16 15:07] LABS: GLUCOSE 91 MG/DL (70-105); TOTAL PROTEIN 8.5 GM/DL (6.4-8.2)
[2020-05-16 15:08] LABS: CARBON DIOXIDE 24 MMOL/L (21-32)
[2020-05-16 15:09] LABS: BILIRUBIN,TOTAL 0.5 MG/DL (0.1-1.0)
[2020-05-16 15:10] LABS: ALKALINE PHOSPHATASE 84 U/L (40-136); CREATININE SERUM 0.73 MG/DL (0.60-1.30); GFR ESTIMATED > 60
[2020-05-16 15:11] LABS: BUN/CREATININE RATIO 18
[2020-05-16 15:11] LABS: BILIRUBIN,URINE NEGATIVE (NEGATIVE); CLARITY,URINE CLEAR; COLOR,URINE YELLOW; GLUCOSE, URINE (UA) NEGATIVE (NEGATIVE); KETONES,URINE 2+ (NEGATIVE); LEUKOCYTE ESTERASE ,URINE 1+ (NEGATIVE); NITRITE,URINE NEGATIVE (NEGATIVE); PH,URINE 8.5 (5-9); PROTEIN,URINE NEGATIVE (NEGATIVE)
[2020-05-16 15:13] LABS: ALANINE AMINOTRANSFERASE 14 U/L (0-55)
[2020-05-16 15:14] LABS: LIPASE 18 U/L (8-78)
[2020-05-16 15:15] LABS: BAND NEUTROPHILS 7 %; BASOPHILS % (MANUAL) 1 %; EOSINOPHILS % (MANUAL) 0 %; LYMPHOCYTES % (MANUAL) 15 %; MONOCYTES % (MANUAL) 4 %; NEUTROPHILS % (MANUAL) 73 %; RBC MORPH NORMAL
[2020-05-16 15:42] LABS: RBC,URINE 0-2 /HPF; WBC,URINE 25-50 /HPF
[2020-05-16 15:43] LABS: BACTERIA,URINE TRACE /HPF
[2020-05-16 15:49] LABS: AMPHETAMINE SCREEN, URINE POSITIVE (NEGATIVE); BARBITURATE SCREEN URINE NEGATIVE (NEGATIVE); BENZODIAZEPINES SCREEN URINE NEGATIVE (NEGATIVE); CANNABINOID SCREEN, URINE NEGATIVE (NEGATIVE); COCAINE SCREEN URINE NEGATIVE (NEGATIVE); METHADONE STAT NEGATIVE (NEGATIVE); METHAMPHETAMINE SCREEN URINE S POSITIVE (NEGATIVE); OPIATE SCREEN URINE NEGATIVE (NEGATIVE); OXYCODONE STAT NEGATIVE (NEGATIVE); PROPOXYPHENE STAT NEGATIVE (NEGATIVE); TRICYCLIC ANTIDEPRESSANTS SCRE NEGATIVE (NEGATIVE)
[2020-05-16] MEDS ORDERED: LACTATED RINGERS 1,000 ML IV ONE ×2 (15:54→18:11)
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
[2020-05-16] MEDS ORDERED: fentaNYL INJECTION 100 MCG/2 ML AMP IVP ONE (16:00)
[2020-05-16] MEDS ORDERED: HOLD METFORMIN - RECEIVED CONTRAST 20 ML VIAL IV SCH (16:00)
[2020-05-16] MEDS ORDERED: NS 100 ML (IVPB) BAG IV ONE (16:00)
[2020-05-16] MEDS ORDERED: IOHEXOL 350 MG/ML 100 ML (OMNIPAQUE 350) VIAL IV ONE (16:00)
--- NOTE | 2020-05-16 16:29 | Diagnostic Imaging Report ---
PROCEDURE: CT abdomen and pelvis with contrast, rule out appendicitis. TECHNIQUE: Multiple contiguous axial images were obtained through the abdomen and pelvis after the administration of intravenous contrast. All CT scans use one or more of the following dose optimizing techniques: automated exposure control, MA and/or KvP adjustment based on patient size and exam type or iterative reconstruction. INDICATION: Abdominal pain. COMPARISON: Correlation is made with prior CT from 02/16/2020. FINDINGS: The lung bases are clear. No discrete liver mass is detected. The gallbladder is unremarkable. No biliary ductal dilatation is seen. The pancreas and spleen are unremarkable. No adrenal mass is detected. Kidneys are unremarkable. Aorta is nonaneurysmal. Small and large bowel loops are normal in caliber. Appendix is visualized in the right lower quadrant. The appendix does not appear to be appreciably thick walled and no periappendiceal inflammation is present. Bladder and uterus are unremarkable. There is 11 mm follicle in the right ovary. No free fluid or fluid collection is seen. IMPRESSION: Essentially unremarkable CT of the abdomen and pelvis. There is no acute feature identified. Specifically, there is no CT evidence of acute appendicitis. Dictated by: Dictated on workstation # [id number]
[2020-05-16] MEDS ORDERED: KETOROLAC 30 MG/ML VIAL IVP ONE (16:45)
[2020-05-16] MEDS ORDERED: cefTRIAXone FOR IV USE 1,000 MG in WATER (STERILE) FOR INJECTION 10 ML IV ONE (18:15)
[2020-05-16] MEDS ORDERED: AZITHROMYCIN 250 MG TAB (ZITHROMAX) PO ONE (18:15)
--- NOTE | 2020-05-16 19:18 | NUR ---
Pt requested this nurse call pt's mother.
[2020-05-16 19:59] VITALS: BP 98/59
--- NOTE | 2020-05-16 20:04 | NUR ---
TAMEKA HICKS admitted to room 418-1, with an admitting diagnosis of SEPSIS, PID, on 05/16/20 from ED via wheelchair, accompanied by staff.TAMEKA HICKS introduced to surroundings, call light, bed controls, phone, TV, temperature control, lights, meal times, smoking policy, visitor policy, side rail policy, bathrooms and showers. Patient Rights given to patient in the handbook. TAMEKA HICKS verbalizes understanding that [facility] is not responsible for the loss or damage to any personal effects or valuables that are kept in the patients posession during their hospitalization. TAMEKA HICKS verbalizes understanding of Interdisciplinary Patient Education. Patient and/or family were informed about the Rapid Response Team and its purpose.
[2020-05-16] MEDS ORDERED: ONDANSETRON 4 MG/2 ML (SDV) Z0FRAN IV PRN (20:15)
[2020-05-16] MEDS ORDERED: CATHETER FLUSH 10 ML SYR IV PRN (20:30)
[2020-05-16] MEDS: LACTATED RINGERS 1,000 ML IV SCH (21:20)
[2020-05-16] MEDS: DOXYCYCLINE INJECTION 100 MG in NS (IVPB) 100 ML IV SCH (21:20)
[2020-05-16] MEDS: fentaNYL INJECTION 100 MCG/2 ML AMP IV PRN (23:51)
[2020-05-17] VITALS: BP 127/78
[2020-05-17 04:00] VITALS: BP 97/67
[2020-05-17] MEDS: LACTATED RINGERS 1,000 ML IV SCH ×3 (04:40→18:11)
[2020-05-17 05:51] LABS: BASOPHILS # (AUTO) 0.1 10^3/uL (0.0-0.1); BASOPHILS % (AUTO) 0 % (0-10); EOSINOPHILS % (AUTO) 0 % (0-10); HEMATOCRIT 33 % (35-52); HEMOGLOBIN 11.1 g/dL (11.5-16.0); LYMPHOCYTES # (AUTO) 1.9 10^3/uL (1.0-4.0); LYMPHOCYTES % (AUTO) 8 % (12-44); MEAN CORPUSCULAR HEMOGLOBIN 30 pg (25-34); MEAN CORPUSCULAR HGB CONC 33 g/dL (32-36); MEAN CORPUSCULAR VOLUME 89 fL (80-99); MEAN PLATELET VOLUME 10.8 fL (9.0-12.2); MONOCYTES # (AUTO) 0.8 10^3/uL (0.0-1.0); MONOCYTES % (AUTO) 4 % (0-12); NEUTROPHILS # (AUTO) 20.3 10^3/uL (1.8-7.8); NEUTROPHILS % (AUTO) 87 % (42-75); PLATELET COUNT 234 10^3/uL (130-400); WHITE BLOOD COUNT 23.2 10^3/uL (4.3-11.0)
[2020-05-17 06:05] LABS: CHLORIDE 103 MMOL/L (98-107); POTASSIUM 3.3 MMOL/L (3.6-5.0); SODIUM 134 MMOL/L (135-145)
[2020-05-17 06:06] LABS: CALCIUM 8.4 MG/DL (8.5-10.1)
[2020-05-17 06:07] LABS: GLUCOSE 130 MG/DL (70-105)
[2020-05-17 06:08] LABS: CARBON DIOXIDE 22 MMOL/L (21-32)
[2020-05-17 06:11] LABS: CREATININE SERUM 0.64 MG/DL (0.60-1.30); GFR ESTIMATED > 60
[2020-05-17 06:12] LABS: BUN/CREATININE RATIO 14
[2020-05-17] MEDS: IBUPROFEN TABLET 200 MG TAB PO PRN (06:57)
--- NOTE | 2020-05-17 07:21 | Consultation ---
HPI History of Present Illness: 25-year-old female who is a poor historian as a visit with her in the morning of May 17, 2020 does report lower abdominal/pelvic pain. She was admitted during the evening of May 16 with a diagnosis of sepsis and pelvic inflammatory disease. She is noted to have fever on one check in the evening or early a.m. She has been tachycardia on admission as well as current hospital stay. There has been no reports of any vaginal discharge. She does report having a previous history of Trichomonas. Based upon laboratory and emergency room information she has been using methamphetamines Source: patient Exam Limitations: clinical condition Date seen by provider: May 17, 2020 Time Seen by Provider: 07:00 Attending Physician Susan Randhawa MD PCP No,Local Physician Consult Date of Admission May 16, 2020 at 19:55 Home Medications Home Medications Reviewed patient Home Medication Reconciliation performed by pharmacy medication reconciliations quick service technician and/or nursing. Patients Allergies have been reviewed. Allergies Coded Allergies: acetaminophen (Verified Allergy, Unknown, 05/10/19) oxycodone (Verified Allergy, Unknown, 05/10/19) ZLA-Djxeqb-Jszikb Hx Patient Social History Marrital Status: single Alcohol Use: Denies Use Recreational Drug Use: Yes Drug of Choice: + IV METH USE, smokes also Smoking Status: Current Everyday Smoker Type Used: Cigarettes 2nd Hand Smoke Exposure: Yes Recent Foreign Travel: No Contact w/other who traveled: No Recent Hopitalizations: No Recent Infectious Disease Expo: No Immunizations Up To Date Tetanus Booster (TDap): Unknown Review of Systems ([facility]) Constitutional: see HPI Reviewed Test Results Reviewed Test Results Lab Laboratory Tests Test 05/16/20 14:45 05/16/20 14:51 05/16/20 14:57 05/16/20 15:00 Range/Units White Blood Count 17.8 H 4.3-11.0 10^3/uL Red Blood Count 4.81 3.80-5.11 10^6/uL Hemoglobin 14.1 11.5-16.0 g/dL Hematocrit 43 35-52 % Mean Corpuscular Volume 89 80-99 fL Mean Corpuscular Hemoglobin 29 25-34 pg Mean Corpuscular Hemoglobin Concent 33 32-36 g/dL Red Cell Distribution Width 13.4 10.0-14.5 % Platelet Count 328 130-400 10^3/uL Mean Platelet Volume 10.4 9.0-12.2 fL Immature Granulocyte % (Auto) 1 % Neutrophils (%) (Auto) 83 H 42-75 % Lymphocytes (%) (Auto) 10 L 12-44 % Monocytes (%) (Auto) 5 0-12 % Eosinophils (%) (Auto) 0 0-10 % Basophils (%) (Auto) 0 0-10 % Neutrophils # (Auto) 14.8 H 1.8-7.8 10^3/uL Lymphocytes # (Auto) 1.8 1.0-4.0 10^3/uL Monocytes # (Auto) 1.0 0.0-1.0 10^3/uL Eosinophils # (Auto) 0.1 0.0-0.3 10^3/uL Basophils # (Auto) 0.1 0.0-0.1 10^3/uL Immature Granulocyte # (Auto) 0.1 0.0-0.1 10^3/uL Neutrophils % (Manual) 73 % Lymphocytes % (Manual) 15 % Monocytes % (Manual) 4 % Eosinophils % (Manual) 0 % Basophils % (Manual) 1 % Band Neutrophils 7 % Blood Morphology Comment NORMAL Sodium Level 136 135-145 MMOL/L Potassium Level 3.9 3.6-5.0 MMOL/L Chloride Level 100 98-107 MMOL/L Carbon Dioxide Level 24 21-32 MMOL/L Anion Gap 12 5-14 MMOL/L Blood Urea Nitrogen 13 7-18 MG/DL Creatinine 0.73 0.60-1.30 MG/DL Estimat Glomerular Filtration Rate > 60 BUN/Creatinine Ratio 18 Glucose Level 91 70-105 MG/DL Calcium Level 9.8 8.5-10.1 MG/DL Corrected Calcium 8.5-10.1 MG/DL Total Bilirubin 0.5 0.1-1.0 MG/DL Aspartate Amino Transf (AST/SGOT) 18 5-34 U/L Alanine Aminotransferase (ALT/SGPT) 14 0-55 U/L Alkaline Phosphatase 84 40-136 U/L Lactate Dehydrogenase 187 125-220 U/L C-Reactive Protein High Sensitivity 1.60 H 0.00-0.50 MG/DL Total Protein 8.5 H 6.4-8.2 GM/DL Albumin 4.7 H 3.2-4.5 GM/DL Lipase 18 8-78 U/L Procalcitonin 0.14 H <0.10 NG/ML Serum Test, Qualitative NEGATIVE NEGATIVE Urine Color YELLOW Urine Clarity CLEAR Urine pH 8.5 5-9 Urine Specific [place] 1.015 L 1.016-1.022 Urine Protein NEGATIVE NEGATIVE Urine Glucose (UA) NEGATIVE NEGATIVE Urine Ketones 2+ H NEGATIVE Urine Nitrite NEGATIVE NEGATIVE Urine Bilirubin NEGATIVE NEGATIVE Urine Urobilinogen 0.2 < = 1.0 MG/DL Urine Leukocyte Esterase 1+ H NEGATIVE Urine RBC (Auto) NEGATIVE NEGATIVE Urine RBC 0-2 /HPF Urine WBC 25-50 H /HPF Urine Crystals NONE /LPF Urine Bacteria TRACE /HPF Urine Casts NONE /LPF Urine Mucus SMALL H /LPF Urine Culture Indicated YES Coronavirus 2019 (KELLE) Negative Negative Urine Opiates Screen NEGATIVE NEGATIVE Urine Oxycodone Screen NEGATIVE NEGATIVE Urine Methadone Screen NEGATIVE NEGATIVE Urine Propoxyphene Screen NEGATIVE NEGATIVE Urine Barbiturates Screen NEGATIVE NEGATIVE Ur Tricyclic Antidepressants Screen NEGATIVE NEGATIVE Urine Phencyclidine Screen NEGATIVE NEGATIVE Urine Amphetamines Screen POSITIVE H NEGATIVE Urine Methamphetamines Screen POSITIVE H NEGATIVE Urine Benzodiazepines Screen NEGATIVE NEGATIVE Urine Cocaine Screen NEGATIVE NEGATIVE Urine Cannabinoids Screen NEGATIVE NEGATIVE Test 05/16/20 17:59 05/16/20 18:15 05/17/20 05:33 Range/Units Lactic Acid Level 0.71 0.50-2.00 MMOL/L White Blood Count 23.2 H 4.3-11.0 10^3/uL Red Blood Count 3.76 L 3.80-5.11 10^6/uL Hemoglobin 11.1 #L 11.5-16.0 g/dL Hematocrit 33 L 35-52 % Mean Corpuscular Volume 89 80-99 fL Mean Corpuscular Hemoglobin 30 25-34 pg Mean Corpuscular Hemoglobin Concent 33 32-36 g/dL Red Cell Distribution Width 13.6 10.0-14.5 % Platelet Count 234 130-400 10^3/uL Mean Platelet Volume 10.8 9.0-12.2 fL Immature Granulocyte % (Auto) 1 % Neutrophils (%) (Auto) 87 H 42-75 % Lymphocytes (%) (Auto) 8 L 12-44 % Monocytes (%) (Auto) 4 0-12 % Eosinophils (%) (Auto) 0 0-10 % Basophils (%) (Auto) 0 0-10 % Neutrophils # (Auto) 20.3 H 1.8-7.8 10^3/uL Lymphocytes # (Auto) 1.9 1.0-4.0 10^3/uL Monocytes # (Auto) 0.8 0.0-1.0 10^3/uL Eosinophils # (Auto) 0.0 0.0-0.3 10^3/uL Basophils # (Auto) 0.1 0.0-0.1 10^3/uL Immature Granulocyte # (Auto) 0.1 0.0-0.1 10^3/uL Sodium Level 134 L 135-145 MMOL/L Potassium Level 3.3 L 3.6-5.0 MMOL/L Chloride Level 103 98-107 MMOL/L Carbon Dioxide Level 22 21-32 MMOL/L Anion Gap 9 5-14 MMOL/L Blood Urea Nitrogen 9 7-18 MG/DL Creatinine 0.64 0.60-1.30 MG/DL Estimat Glomerular Filtration Rate > 60 BUN/Creatinine Ratio 14 Glucose Level 130 H 70-105 MG/DL Calcium Level 8.4 L 8.5-10.1 MG/DL C-Reactive Protein High Sensitivity 16.69 H 0.00-0.50 MG/DL Radiology PT STATUS: REG ER : 1995 PHYSICIAN: JABIER SALAZAR MD ADMIT DATE: 05/16/20/ER Signed Date of Exam:05/16/20 CT ABD/PELV W (APPENDICITIS) PROCEDURE: CT abdomen and pelvis with contrast, rule out appendicitis. TECHNIQUE: Multiple contiguous axial images were obtained through the abdomen and pelvis after the administration of intravenous contrast. All CT scans use one or more of the following dose optimizing techniques: automated exposure control, MA and/or KvP adjustment based on patient size and exam type or iterative reconstruction. INDICATION: Abdominal pain. COMPARISON: Correlation is made with prior CT from 02/16/2020. FINDINGS: The lung bases are clear. No discrete liver mass is detected. The gallbladder is unremarkable. No biliary ductal dilatation is seen. The pancreas and spleen are unremarkable. No adrenal mass is detected. Kidneys are unremarkable. Aorta is nonaneurysmal. Small and large bowel loops are normal in caliber. Appendix is visualized in the right lower quadrant. The appendix does not appear to be appreciably thick walled and no periappendiceal inflammation is present. Bladder and uterus are unremarkable. There is 11 mm follicle in the right ovary. No free fluid or fluid collection is seen. IMPRESSION: Essentially unremarkable CT of the abdomen and pelvis. There is no acute feature identified. Specifically, there is no CT evidence of acute appendicitis. Dictated by: Dictated on workstation # [id number] Dict: 05/16/20 1623 Trans: 05/16/20 1659 [id number] [id number] Interpreted by: KYLEE JONES MD Electronically signed by: KYLEE JONES MD 05/16/20 1659 Physical Exam-([facility]) Physical Exam Vital Signs VS - Last 72 Hours, by Label 05/16/20 05/16/20 05/16/20 05/16/20 14:10 19:59 20:00 22:50 Temp 37.2 37.4 37.2 Pulse 121 145 124 Resp 22 22 20 B/P (MAP) 100/66 (77) 98/59 104/68 (77) Pulse Ox 95 98 95 O2 Delivery Room Air Room Air Room Air Room Air 05/17/20 05/17/20 05/17/20 05/17/20 00:00 04:00 07:56 08:00 Temp 38.2 37.5 37.1 Pulse 140 125 111 Resp 20 18 20 B/P (MAP) 127/78 (94) 97/67 (77) 105/68 (80) Pulse Ox 99 100 99 99 O2 Delivery Room Air Room Air Room Air Room Air 05/17/20 05/17/20 05/17/20 05/17/20 11:25 15:44 19:07 20:00 Temp 37.0 36.8 36.9 Pulse 97 89 88 Resp 18 16 16 B/P (MAP) 98/57 (71) 92/60 (71) 94/62 (73) Pulse Ox 99 98 99 O2 Delivery Room Air Room Air Room Air Room Air 05/18/20 05/18/20 00:00 04:00 Temp 36.9 36.8 Pulse 94 106 Resp 16 18 B/P (MAP) 92/55 (67) 98/62 (74) Pulse Ox 98 99 O2 Delivery Room Air Room Air Capillary Refill : Less Than 3 Seconds General Appearance: moderate distress Eyes: Bilateral Eye Normal Inspection Neck: supple Respiratory: lungs clear Cardiovascular: regular rate, rhythm, tachycardia Gastrointestinal: other (patient curled up in position) Genital/Rectal: other (performed in ED) Assessment/Plan Assessment/Plan Admission Dx 1. Sepsis 2. Pelvic inflammatory disease 3. Methamphetamine use Assessment & Plan 1. Sepsis -patient currently on IV fluids at 125 mL per hour 2. Pelvic inflammatory disease -continue with IV Rocephin and doxycycline today -Cultures at this time are still pending from pelvic In the emergency department -Pain control with ibuprofen. She has fentanyl written but it has been held due to her low her blood pressure. 3. Methamphetamine use Clinical Quality Measures DVT/VTE Risk/Contraindication: Risk Factor Score Per Nursin RFS Level Per Nursing on Admit: 2=Moderate DEMARCUS MCKINNEY MD May 17, 2020 07:20
[2020-05-17 07:56] VITALS: BP 105/68
[2020-05-17] MEDS: fentaNYL INJECTION 100 MCG/2 ML AMP IV PRN ×4 (09:00→21:10)
[2020-05-17] MEDS: DOXYCYCLINE INJECTION 100 MG in NS (IVPB) 100 ML IV SCH ×2 (09:43→21:15)
--- NOTE | 2020-05-17 09:52 | NUR ---
LEFT MESSAGE FOR DR MCKINNEY TO ADDRESS DVT PROPHYLAXIS
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
[2020-05-17 11:25] VITALS: BP 98/57
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
[2020-05-17] MEDS ORDERED: PIPERACILLIN/TAZO 4.5 GM/NS 100 ML IV NR ×2 (12:45)
--- NOTE | 2020-05-17 13:48 | NUR ---
Attempted to complete nutrition assessment with pt, but pt refused to answer questions at this time. Per chart review, pt appears to be eating well, avg PO intake of 75% x2meal. Will DC supplementation order at this time as avg PO intake is 75%. Will attempt to complete nutrition assessment on 05/18. Will continue to follow and reassess as pt needs, intake, and status change. Bria Watson MS RD [phone]
--- NOTE | 2020-05-17 15:13 | NUR ---
MULTIPLE ATTEMPTS HAVE BEEN MADE BY MYSELF AND THE OTHER MED REC TERMITE CONTROL TECHNICIAN URIEL TO TALK WITH THE PT ABOUT ANY POSSIBLE PRESCRIPTION OR OTC MEDICATIONS, UNFORTUNATELY ALL ATTEMPTS WERE UNSUCCESSFUL. DUE TO THE PT NOT ANSWERING ANY OF MY QUESTIONS AND HER NOT HAVING A PCP TO FIND OUT POSSIBLE MEDICATIONS I HAVE SET HER MED REC "UNABLE TO OBTAIN ACTIVE PRESCRIPTIONS OR REPORTED MEDS" [facility]- I LET THE PT KNOW IF AT THE TIME OF DISCHARGE IF SHE WOULD LIKE TO USE A DIFFERENT PHARMACY TO LET US KNOW
[2020-05-17 15:44] VITALS: BP 92/60
[2020-05-17] MEDS ORDERED: cefTRIAXone 1,000 MG/SWFI 10 ML IV PUSH IV SCH ×2 (18:00)
[2020-05-17] MEDS: PIPERACILLIN/TAZOBACTAM (BULK) 4.5 GM in NS (IVPB) 100 ML IV SCH (18:11)
[2020-05-17 19:07] VITALS: BP 94/62
[2020-05-18] VITALS: BP 92/55
[2020-05-18] MEDS: fentaNYL INJECTION 100 MCG/2 ML AMP IV PRN (00:16)
[2020-05-18] MEDS: PIPERACILLIN/TAZOBACTAM (BULK) 4.5 GM in NS (IVPB) 100 ML IV SCH ×3 (03:23→18:10)
[2020-05-18 04:00] VITALS: BP 98/62
[2020-05-18 05:05] LABS: BASOPHILS % (AUTO) 0 % (0-10); EOSINOPHILS # (AUTO) 0.2 10^3/uL (0.0-0.3); EOSINOPHILS % (AUTO) 2 % (0-10); HEMATOCRIT 31 % (35-52); LYMPHOCYTES # (AUTO) 2.5 10^3/uL (1.0-4.0); LYMPHOCYTES % (AUTO) 36 % (12-44); MEAN CORPUSCULAR HEMOGLOBIN 29 pg (25-34); MEAN CORPUSCULAR HGB CONC 32 g/dL (32-36); MEAN CORPUSCULAR VOLUME 91 fL (80-99); MEAN PLATELET VOLUME 10.6 fL (9.0-12.2); MONOCYTES # (AUTO) 0.6 10^3/uL (0.0-1.0); MONOCYTES % (AUTO) 8 % (0-12); NEUTROPHILS # (AUTO) 3.8 10^3/uL (1.8-7.8); NEUTROPHILS % (AUTO) 53 % (42-75); PLATELET COUNT 226 10^3/uL (130-400); WHITE BLOOD COUNT 7.1 10^3/uL (4.3-11.0)
[2020-05-18 05:22] LABS: ALBUMIN 2.9 GM/DL (3.2-4.5); CHLORIDE 108 MMOL/L (98-107); POTASSIUM 3.6 MMOL/L (3.6-5.0); SODIUM 139 MMOL/L (135-145)
[2020-05-18 05:24] LABS: CALCIUM 8.2 MG/DL (8.5-10.1)
[2020-05-18 05:25] LABS: GLUCOSE 129 MG/DL (70-105); TOTAL PROTEIN 5.3 GM/DL (6.4-8.2)
[2020-05-18 05:26] LABS: CARBON DIOXIDE 23 MMOL/L (21-32)
[2020-05-18 05:27] LABS: BILIRUBIN,TOTAL < 0.1 MG/DL (0.1-1.0)
[2020-05-18 05:28] LABS: ALKALINE PHOSPHATASE 51 U/L (40-136); CREATININE SERUM 0.64 MG/DL (0.60-1.30); GFR ESTIMATED > 60
[2020-05-18 05:29] LABS: BUN/CREATININE RATIO 9
[2020-05-18 05:31] LABS: ALANINE AMINOTRANSFERASE 14 U/L (0-55)
[2020-05-18] MEDS: LACTATED RINGERS 1,000 ML IV SCH ×2 (05:53→06:43)
--- NOTE | 2020-05-18 07:08 | Progress Note ---
Subjective Subjective/Events-last exam patient was asking for pain medication this morning. She doesn't appear to be in acute distress however. She was asking the pain medication for her lower abdominal discomfort. Her blood pressure remains low. Focused Exam Lactate Level 05/16/20 18:15: Lactic Acid Level 0.71 Objective Exam Last Set of Vital Signs Vital Signs Date Time Temp Pulse Resp B/P (MAP) Pulse Ox O2 Delivery O2 Flow Rate FiO2 05/18/20 04:00 36.8 106 18 98/62 (74) 99 Room Air Capillary Refill : Less Than 3 Seconds I&O Intake and Output 05/18/20 00:00 Intake Total 2560 ml Balance 2560 ml Intake Oral 1330 ml IV Total 1230 ml # Voids 6 General: No Acute Distress Lungs: Clear to Auscultation Heart: Regular Rate Abdomen: Soft (and flat. She does demonstrate very minimal tenderness however) Results/Procedures Lab Laboratory Tests 05/18/20 04:50: Sodium Level 139, Potassium Level 3.6, Chloride Level 108H, Carbon Dioxide Level 23, Anion Gap 8, Blood Urea Nitrogen 6L, Creatinine 0.64, Estimat Glomerular Filtration Rate > 60, BUN/Creatinine Ratio 9, Glucose Level 129H, Calcium Level 8.2L, Corrected Calcium 9.1, Total Bilirubin < 0.1L, Aspartate Amino Transf (AST/SGOT) 17, Alanine Aminotransferase (ALT/SGPT) 14, Alkaline Phosphatase 51, Total Protein 5.3L, Albumin 2.9L 05/18/20 04:56: White Blood Count 7.1, Red Blood Count 3.43L, Hemoglobin 10.0L, Hematocrit 31L, Mean Corpuscular Volume 91, Mean Corpuscular Hemoglobin 29, Mean Corpuscular Hemoglobin Concent 32, Red Cell Distribution Width 14.2, Platelet Count 226, Mean Platelet Volume 10.6, Immature Granulocyte % (Auto) 0, Neutrophils (%) (Auto) 53, Lymphocytes (%) (Auto) 36, Monocytes (%) (Auto) 8, Eosinophils (%) (Auto) 2, Basophils (%) (Auto) 0, Neutrophils # (Auto) 3.8, Lymphocytes # (Auto) 2.5, Monocytes # (Auto) 0.6, Eosinophils # (Auto) 0.2, Basophils # (Auto) 0.0, Immature Granulocyte # (Auto) 0.0 Microbiology 05/16/20 Blood Culture - Preliminary, Resulted No growth 05/16/20 Genital Culture, Resulted Pending 05/16/20 Wet Prep - Final, Resulted 05/16/20 Urine Culture - Final, Complete NO GROWTH Radiology PT STATUS: REG ER : 1995 PHYSICIAN: JABIER SALAZAR MD ADMIT DATE: 05/16/20/ER Signed Date of Exam:05/16/20 CT ABD/PELV W (APPENDICITIS) PROCEDURE: CT abdomen and pelvis with contrast, rule out appendicitis. TECHNIQUE: Multiple contiguous axial images were obtained through the abdomen and pelvis after the administration of intravenous contrast. All CT scans use one or more of the following dose optimizing techniques: automated exposure control, MA and/or KvP adjustment based on patient size and exam type or iterative reconstruction. INDICATION: Abdominal pain. COMPARISON: Correlation is made with prior CT from 02/16/2020. FINDINGS: The lung bases are clear. No discrete liver mass is detected. The gallbladder is unremarkable. No biliary ductal dilatation is seen. The pancreas and spleen are unremarkable. No adrenal mass is detected. Kidneys are unremarkable. Aorta is nonaneurysmal. Small and large bowel loops are normal in caliber. Appendix is visualized in the right lower quadrant. The appendix does not appear to be appreciably thick walled and no periappendiceal inflammation is present. Bladder and uterus are unremarkable. There is 11 mm follicle in the right ovary. No free fluid or fluid collection is seen. IMPRESSION: Essentially unremarkable CT of the abdomen and pelvis. There is no acute feature identified. Specifically, there is no CT evidence of acute appendicitis. Dictated by: Dictated on workstation # [id number] Dict: 05/16/20 1623 Trans: 05/16/20 1659 [id number] [id number] Interpreted by: KYLEE JONES MD Electronically signed by: KYLEE JONES MD 05/16/20 1659 Assessment/Plan Assessment/Plan Admission Status: Inpatient Order (span 2 midnights) Assessment & Plan 1. Sepsis -patient currently on IV fluids at 125 mL per hour 05/18 -white blood cell count down this morning to normal range 2. Pelvic inflammatory disease -continue with IV Rocephin and doxycycline today -Cultures at this time are still pending from pelvic In the emergency department -Pain control with ibuprofen. She has fentanyl written but it has been held due to her low her blood pressure. 05/18 -patient on day number 2 of Rocephin and doxycycline IV -Noted surgical consultation 3. Methamphetamine use Clinical Quality Measures DVT/VTE Risk/Contraindication: Risk Factor Score Per Nursin RFS Level Per Nursing on Admit: 2=Moderate DEMARCUS MCKINNEY MD May 18, 2020 07:08
[2020-05-18] MEDS: IBUPROFEN TABLET 200 MG TAB PO PRN (07:48)
[2020-05-18 08:00] VITALS: BP 98/54
[2020-05-18] MEDS: DOXYCYCLINE INJECTION 100 MG in NS (IVPB) 100 ML IV SCH ×2 (08:21→21:22)
[2020-05-18] MEDS: ACETAMINOPHEN 325 MG TABLET PO PRN (10:19)
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
[2020-05-18] MEDS ORDERED: polyethylene glycoL POWDER 17 GM (MIRALAX) PACK PO PRN (11:45)
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
[2020-05-18 12:00] VITALS: BP 87/50
[2020-05-18] MEDS: HYDROcodone/APAP 5 MG/325 MG (LORTAB) TAB PO PRN (12:00)
--- NOTE | 2020-05-18 12:32 | Progress Note ---
Subjective Date Seen by a Provider: May 18, 2020 Time Seen by a Provider: 12:00 Subjective/Events-last exam doing better. withdrawn behavior and only wants to sleep. does not appear to be in any acute distress. wbc normal. Focused Exam Lactate Level 05/16/20 18:15: Lactic Acid Level 0.71 Objective Exam Vital Signs Date Time Temp Pulse Resp B/P (MAP) Pulse Ox O2 Delivery O2 Flow Rate FiO2 05/18/20 12:00 36.0 84 16 87/50 (62) 96 Room Air 05/18/20 08:00 Room Air 05/18/20 08:00 36.4 85 20 98/54 (69) 96 Room Air 05/18/20 04:00 36.8 106 18 98/62 (74) 99 Room Air 05/18/20 00:00 36.9 94 16 92/55 (67) 98 Room Air 05/17/20 20:00 Room Air 05/17/20 19:07 36.9 88 16 94/62 (73) 99 Room Air 05/17/20 15:44 36.8 89 16 92/60 (71) 98 Room Air I & O 05/18/20 07:00 Intake Total 3010 ml Balance 3010 ml Capillary Refill : Less Than 3 SecondsLess Than 3 Seconds General Appearance: No Apparent Distress HEENT: PERRL/EOMI Neck: Full Range of Motion Respiratory: Chest Non Tender, Lungs Clear Cardiovascular: Regular Rate, Rhythm Gastrointestinal: normal bowel sounds, soft, tenderness Extremity: Normal Capillary Refill Neurologic/Psychiatric: Alert, Oriented x3 Skin: Normal Color Lymphatic: No Adenopathy Results Lab Laboratory Tests 05/18/20 04:50: Sodium Level 139, Potassium Level 3.6, Chloride Level 108H, Carbon Dioxide Level 23, Anion Gap 8, Blood Urea Nitrogen 6L, Creatinine 0.64, Estimat Glomerular Filtration Rate > 60, BUN/Creatinine Ratio 9, Glucose Level 129H, Calcium Level 8.2L, Corrected Calcium 9.1, Total Bilirubin < 0.1L, Aspartate Amino Transf (AST/SGOT) 17, Alanine Aminotransferase (ALT/SGPT) 14, Alkaline Phosphatase 51, Total Protein 5.3L, Albumin 2.9L 05/18/20 04:56: White Blood Count 7.1, Red Blood Count 3.43L, Hemoglobin 10.0L, Hematocrit 31L, Mean Corpuscular Volume 91, Mean Corpuscular Hemoglobin 29, Mean Corpuscular Hem oglobin Concent 32, Red Cell Distribution Width 14.2, Platelet Count 226, Mean Platelet Volume 10.6, Immature Granulocyte % (Auto) 0, Neutrophils (%) (Auto) 53, Lymphocytes (%) (Auto) 36, Monocytes (%) (Auto) 8, Eosinophils (%) (Auto) 2, Basophils (%) (Auto) 0, Neutrophils # (Auto) 3.8, Lymphocytes # (Auto) 2.5, Monocytes # (Auto) 0.6, Eosinophils # (Auto) 0.2, Basophils # (Auto) 0.0, Immature Granulocyte # (Auto) 0.0 Microbiology 05/16/20 Blood Culture - Preliminary, Resulted No growth 05/16/20 Genital Culture - Preliminary, Resulted 05/16/20 Wet Prep - Final, Resulted 05/16/20 Urine Culture - Final, Complete NO GROWTH Assessment/Plan Assessment/Plan Assess & Plan/Chief Complaint pelvic inflammatory disease. cont abx. advance diet. Clinical Quality Measures DVT/VTE Risk/Contraindication: Risk Factor Score Per Nursin RFS Level Per Nursing on Admit: 2=Moderate AYDIN KERR MD May 18, 2020 12:32
[2020-05-18 16:00] VITALS: BP 90/51
--- NOTE | 2020-05-18 16:18 | NUR ---
CM/SS: Visited with pt as to plan for discharge and her desire to go to treatment in [place], as she has been there in the past. Plan: Undetermined at this time Summary: Pt feels as if she is feeling better today, she reports she is still tired. Pt is asked about treatment, she reports that she wants to go to [facility] in [place], [place]. Telephone call to [facility] in [place], [place]- [phone] - They have indicated they have female beds and that this worker will need to talk with the intake department. A message is left with the Intake staff.
[2020-05-18 20:00] VITALS: BP 103/56
[2020-05-19] VITALS (7 sets, daily range): BP systolic 84–100; BP diastolic 46–56
[2020-05-19] MEDS: LACTATED RINGERS 1,000 ML IV SCH ×2 (02:24→03:07)
[2020-05-19] MEDS: PIPERACILLIN/TAZOBACTAM (BULK) 4.5 GM in NS (IVPB) 100 ML IV SCH (03:06)
[2020-05-19 05:31] LABS: BASOPHILS % (AUTO) 0 % (0-10); EOSINOPHILS # (AUTO) 0.2 10^3/uL (0.0-0.3); EOSINOPHILS % (AUTO) 3 % (0-10); HEMATOCRIT 33 % (35-52); HEMOGLOBIN 10.6 g/dL (11.5-16.0); LYMPHOCYTES # (AUTO) 3.2 10^3/uL (1.0-4.0); LYMPHOCYTES % (AUTO) 54 % (12-44); MEAN CORPUSCULAR HEMOGLOBIN 29 pg (25-34); MEAN CORPUSCULAR HGB CONC 32 g/dL (32-36); MEAN CORPUSCULAR VOLUME 91 fL (80-99); MEAN PLATELET VOLUME 10.9 fL (9.0-12.2); MONOCYTES # (AUTO) 0.7 10^3/uL (0.0-1.0); MONOCYTES % (AUTO) 11 % (0-12); NEUTROPHILS # (AUTO) 1.9 10^3/uL (1.8-7.8); NEUTROPHILS % (AUTO) 32 % (42-75); PLATELET COUNT 265 10^3/uL (130-400); WHITE BLOOD COUNT 5.9 10^3/uL (4.3-11.0)
[2020-05-19] MEDS: DOXYCYCLINE INJECTION 100 MG in NS (IVPB) 100 ML IV SCH ×2 (08:30→20:22)
[2020-05-19] MEDS: ACETAMINOPHEN 325 MG TABLET PO PRN (09:19)
[2020-05-19] MEDS: fentaNYL INJECTION 100 MCG/2 ML AMP IV PRN ×4 (09:33→22:46)
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
--- NOTE | 2020-05-19 10:32 | Progress Note ---
Subjective Subjective/Events-last exam patient appears to be in no distress this morning. She is communicating easily with me. Her overall lower abdominal and pelvic pain is improved Focused Exam Lactate Level 05/16/20 18:15: Lactic Acid Level 0.71 Objective Exam Last Set of Vital Signs Vital Signs Date Time Temp Pulse Resp B/P (MAP) Pulse Ox O2 Delivery O2 Flow Rate FiO2 05/19/20 09:50 Room Air 05/19/20 08:00 35.6 83 16 86/50 (62) 98 Capillary Refill : Less Than 3 SecondsLess Than 3 Seconds I&O Intake and Output 05/19/20 00:00 Intake Total 2250 ml Balance 2250 ml Intake Oral 2250 ml # Voids 10 Results/Procedures Lab Laboratory Tests 05/19/20 05:13: White Blood Count 5.9, Red Blood Count 3.63L, Hemoglobin 10.6L, Hematocrit 33L, Mean Corpuscular Volume 91, Mean Corpuscular Hemoglobin 29, Mean Corpuscular Hemoglobin Concent 32, Red Cell Distribution Width 13.9, Platelet Count 265, Mean Platelet Volume 10.9, Immature Granulocyte % (Auto) 0, Neutrophils (%) (Auto) 32L, Lymphocytes (%) (Auto) 54H, Monocytes (%) (Auto) 11, Eosinophils (%) (Auto) 3, Basophils (%) (Auto) 0, Neutrophils # (Auto) 1.9, Lymphocytes # (Auto) 3.2, Monocytes # (Auto) 0.7, Eosinophils # (Auto) 0.2, Basophils # (Auto) 0.0, Immature Granulocyte # (Auto) 0.0, C-Reactive Protein High Sensitivity 6.84H Microbiology 05/16/20 Blood Culture - Preliminary, Resulted No growth 05/16/20 Genital Culture - Preliminary, Resulted Staphylococcus aureus Strep agalactiae Group B 05/16/20 Wet Prep - Final, Resulted 05/16/20 Urine Culture - Final, Complete NO GROWTH Radiology PT STATUS: REG ER : 1995 PHYSICIAN: JABIER SALAZAR MD ADMIT DATE: 05/16/20/ER Signed Date of Exam:05/16/20 CT ABD/PELV W (APPENDICITIS) PROCEDURE: CT abdomen and pelvis with contrast, rule out appendicitis. TECHNIQUE: Multiple contiguous axial images were obtained through the abdomen and pelvis after the administration of intravenous contrast. All CT scans use one or more of the following dose optimizing techniques: automated exposure control, MA and/or KvP adjustment based on patient size and exam type or iterative reconstruction. INDICATION: Abdominal pain. COMPARISON: Correlation is made with prior CT from 02/16/2020. FINDINGS: The lung bases are clear. No discrete liver mass is detected. The gallbladder is unremarkable. No biliary ductal dilatation is seen. The pancreas and spleen are unremarkable. No adrenal mass is detected. Kidneys are unremarkable. Aorta is nonaneurysmal. Small and large bowel loops are normal in caliber. Appendix is visualized in the right lower quadrant. The appendix does not appear to be appreciably thick walled and no periappendiceal inflammation is present. Bladder and uterus are unremarkable. There is 11 mm follicle in the right ovary. No free fluid or fluid collection is seen. IMPRESSION: Essentially unremarkable CT of the abdomen and pelvis. There is no acute feature identified. Specifically, there is no CT evidence of acute appendicitis. Dictated by: Dictated on workstation # [id number] Dict: 05/16/20 1623 Trans: 05/16/20 1659 [id number] [id number] Interpreted by: KYLEE JONES MD Electronically signed by: KYLEE JONES MD 05/16/20 1659 Assessment/Plan Assessment/Plan Assessment & Plan 1. Sepsis -patient currently on IV fluids at 125 mL per hour 05/18 -white blood cell count down this morning to normal range 2. Pelvic inflammatory disease -continue with IV Rocephin and doxycycline today -Cultures at this time are still pending from pelvic In the emergency department -Pain control with ibuprofen. She has fentanyl written but it has been held due to her low her blood pressure. 05/18 -patient on day number 2 of Rocephin and doxycycline IV -Noted surgical consultation 05/19 -test result is negative for chlamydia but positive for gonorrhea -She has been on rocephin but noted DCed yesterday by surgery and switched to Zosyn. 3. Methamphetamine use -planning [facility] dc [facility] Clinical Quality Measures DVT/VTE Risk/Contraindication: Risk Factor Score Per Nursin RFS Level Per Nursing on Admit: 2=Moderate DEMARCUS MCKINNEY MD May 19, 2020 10:32
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
[2020-05-19] MEDS: cefTRIAXone FOR IV USE 1,000 MG in WATER (STERILE) FOR INJECTION 10 ML IV SCH (12:24)
--- NOTE | 2020-05-19 13:52 | Progress Note ---
Subjective Date Seen by a Provider: May 19, 2020 Time Seen by a Provider: 13:30 Subjective/Events-last exam doing ok. always complains of some pain. no point tenderness RLQ. no fev er/chills. wbc normal. tolerating diet. Focused Exam Lactate Level 05/16/20 18:15: Lactic Acid Level 0.71 Objective Exam Vital Signs Date Time Temp Pulse Resp B/P (MAP) Pulse Ox O2 Delivery O2 Flow Rate FiO2 05/19/20 12:00 36.1 80 16 99/56 (70) 96 Room Air 05/19/20 09:00 Room Air 05/19/20 08:00 35.6 83 16 86/50 (62) 98 Room Air 05/19/20 03:22 36.1 78 16 93/50 (64) 100 Room Air 05/19/20 00:08 36.7 94 18 99/51 (67) 98 Room Air 05/18/20 20:00 36.6 91 18 103/56 (72) 98 Room Air 05/18/20 20:00 Room Air 05/18/20 16:00 36.6 107 18 90/51 (64) 98 Room Air I & O 05/19/20 07:00 Intake Total 2030 ml Balance 2030 ml Capillary Refill : Less Than 3 SecondsLess Than 3 Seconds General Appearance: No Apparent Distress Neck: Full Range of Motion Respiratory: Chest Non Tender Cardiovascular: Regular Rate, Rhythm Gastrointestinal: normal bowel sounds, soft, tenderness Extremity: Normal Capillary Refill Skin: Normal Color Lymphatic: No Adenopathy Results Lab Laboratory Tests 05/19/20 05:13: White Blood Count 5.9, Red Blood Count 3.63L, Hemoglobin 10.6L, Hematocrit 33L, Mean Corpuscular Volume 91, Mean Corpuscular Hemoglobin 29, Mean Corpuscular Hemoglobin Concent 32, Red Cell Distribution Width 13.9, Platelet Count 265, Mean Platelet Volume 10.9, Immature Granulocyte % (Auto) 0, Neutrophils (%) (Auto) 32L, Lymphocytes (%) (Auto) 54H, Monocytes (%) (Auto) 11, Eosinophils (%) (Auto) 3, Basophils (%) (Auto) 0, Neutrophils # (Auto) 1.9, Lymphocytes # (Auto) 3.2, Monocytes # (Auto) 0.7, Eosinophils # (Auto) 0.2, Basophils # (Auto) 0.0, Immature Granulocyte # (Auto) 0.0, C-Reactive Protein High Sensitivity 6.84H Microbiology 05/16/20 Blood Culture - Preliminary, Resulted No growth 05/16/20 Genital Culture - Preliminary, Resulted Staphylococcus aureus Strep agalactiae Group B 05/16/20 Wet Prep - Final, Resulted 05/16/20 Urine Culture - Final, Complete NO GROWTH Assessment/Plan Assessment/Plan Assess & Plan/Chief Complaint pelvic inflammatory disease. cont abx. advance diet. will need placement on friday. Clinical Quality Measures DVT/VTE Risk/Contraindication: Risk Factor Score Per Nursin RFS Level Per Nursing on Admit: 2=Moderate AYDIN KERR MD May 19, 2020 13:52
--- NOTE | 2020-05-19 14:00 | NUR ---
PATIENT REQUESTING TO HAVE IV FLUIDS DC, DR SMITH NOTIFIED AND ORDER GIVEN TO STOP FLUIDS
--- NOTE | 2020-05-19 14:12 | NUR ---
CM/SS: Visited with pt as to her plan for discharge - discuss with pt her being assessed for drug and alcohol services Plan: Pt to be assessed for Drug and Alcohol Services with evaluation at 10:30am - Friday, May 22 by Alvina. Summary: Pt is informed that she will be here through the weekend. Pt is able to give [facility] prevention services via phone her information in order to have her assessment completed. Pt reports that she wanted to be able to go to [place] for treatment today. She is explained that she will need to remain here today and possible discharge on Friday. Pt seems frustrated with that. Pt ask this worker for a sandwich tray, and to have the IV turned down. This worker passes along the information to LEE Garcia.
[2020-05-19] MEDS: IBUPROFEN TABLET 200 MG TAB PO PRN (15:59)
[2020-05-19] MEDS: NICOTINE 14 MG (NICODERM) PATCH TD SCH (16:00)
--- NOTE | 2020-05-19 17:09 | NUR ---
requested nicotine patch, order obtained and taken to room, patient then refused patch until carlos morning.
[2020-05-20 04:06] VITALS: BP 96/54
[2020-05-20 08:00] VITALS: BP 99/65
--- NOTE | 2020-05-20 08:06 | Progress Note ---
Subjective Subjective/Events-last exam patient is resting comfortably. She was informed today that she had gonorrhea. She was requesting cigarette I offered nicotine patch but she declined. Her lower abdominal/pelvic pain is markedly improved Objective Exam Last Set of Vital Signs Vital Signs Date Time Temp Pulse Resp B/P (MAP) Pulse Ox O2 Delivery O2 Flow Rate FiO2 05/20/20 04:06 36.2 20 96/54 (68) 83 Room Air 05/19/20 23:36 94 Capillary Refill : Less Than 3 SecondsLess Than 3 Seconds I&O Intake and Output 05/20/20 00:00 Intake Total 2075 ml Balance 2075 ml Intake Oral 1465 ml IV Total 610 ml # Voids 7 # Bowel Movements 2 General: No Acute Distress Lungs: Clear to Auscultation Heart: Regular Rate Abdomen: Soft Results/Procedures Lab Microbiology 05/16/20 Blood Culture - Preliminary, Resulted No growth 05/16/20 Genital Culture - Preliminary, Resulted Staphylococcus aureus Strep agalactiae Group B Neisseria gonorrhoeae 05/16/20 Wet Prep - Final, Resulted 05/16/20 Urine Culture - Final, Complete NO GROWTH Radiology PT STATUS: REG ER : 1996 PHYSICIAN: JABIER SALAZAR MD ADMIT DATE: 05/16/20/ER Signed Date of Exam:05/16/20 CT ABD/PELV W (APPENDICITIS) PROCEDURE: CT abdomen and pelvis with contrast, rule out appendicitis. TECHNIQUE: Multiple contiguous axial images were obtained through the abdomen and pelvis after the administration of intravenous contrast. All CT scans use one or more of the following dose optimizing techniques: automated exposure control, MA and/or KvP adjustment based on patient size and exam type or iterative reconstruction. INDICATION: Abdominal pain. COMPARISON: Correlation is made with prior CT from 02/16/2020. FINDINGS: The lung bases are clear. No discrete liver mass is detected. The gallbladder is unremarkable. No biliary ductal dilatation is seen. The pancreas and spleen are unremarkable. No adrenal mass is detected. Kidneys are unremarkable. Aorta is nonaneurysmal. Small and large bowel loops are normal in caliber. Appendix is visualized in the right lower quadrant. The appendix does not appear to be appreciably thick walled and no periappendiceal inflammation is present. Bladder and uterus are unremarkable. There is 11 mm follicle in the right ovary. No free fluid or fluid collection is seen. IMPRESSION: Essentially unremarkable CT of the abdomen and pelvis. There is no acute feature identified. Specifically, there is no CT evidence of acute appendicitis. Dictated by: Dictated on workstation # [id number] Dict: 05/16/20 1623 Trans: 05/16/20 1659 [id number] [id number] Interpreted by: KYLEE JONES MD Electronically signed by: KYLEE JONES MD 05/16/20 1659 Assessment/Plan Assessment/Plan Assessment & Plan 1. Sepsis -patient currently on IV fluids at 125 mL per hour 05/18 -white blood cell count down this morning to normal range 2. Pelvic inflammatory disease -continue with IV Rocephin and doxycycline today -Cultures at this time are still pending from pelvic In the emergency department -Pain control with ibuprofen. She has fentanyl written but it has been held due to her low her blood pressure. 05/18 -patient on day number 2 of Rocephin and doxycycline IV -Noted surgical consultation 05/19 -test result is negative for chlamydia but positive for gonorrhea -She has been on rocephin but noted DCed yesterday by surgery and switched to Zosyn. 05/20 -patient is back on Rocephin and will take a full 7 days. 3. Methamphetamine use -planning on dc to [facility] treatment in [facility] -I suspect on Friday, May 22 she will be placed at [facility] Clinical Quality Measures DVT/VTE Risk/Contraindication: Risk Factor Score Per Nursin RFS Level Per Nursing on Admit: 2=Moderate DEMARCUS MCKINNEY MD May 20, 2020 08:06
[2020-05-20] MEDS: DOXYCYCLINE INJECTION 100 MG in NS (IVPB) 100 ML IV SCH ×2 (09:05→21:17)
[2020-05-20] MEDS: fentaNYL INJECTION 100 MCG/2 ML AMP IV PRN ×2 (09:05→11:21)
[2020-05-20] MEDS: NICOTINE 14 MG (NICODERM) PATCH TD SCH (09:07)
[2020-05-20] MEDS: NICOTINE PATCH REMOVAL TP SCH (09:08)
[2020-05-20] MEDS: cefTRIAXone FOR IV USE 1,000 MG in WATER (STERILE) FOR INJECTION 10 ML IV SCH (09:13)
[2020-05-20 12:00] VITALS: BP 160/69
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
[2020-05-20] MEDS ORDERED: NICOTINE 2 MG GUM (NICORETTE) PO PRN (13:30)
[2020-05-20] MEDS: HYDROcodone/APAP 5 MG/325 MG (LORTAB) TAB PO PRN ×2 (13:55→20:23)
[2020-05-20 15:52] VITALS: BP 88/56
[2020-05-20 19:39] VITALS: BP 154/65
[2020-05-20] MEDS: diphenhydrAMINE 25 MG TAB (BENADRYL) PO PRN (21:39)
[2020-05-21 04:06] VITALS: BP 79/62
--- NOTE | 2020-05-21 07:27 | Progress Note ---
Subjective Subjective/Events-last exam patient continues to feel better with regard to lower abdominal/pelvic pain. She does report to me a rash that came up on her left wrist and left thigh region. Objective Exam Last Set of Vital Signs Vital Signs Date Time Temp Pulse Resp B/P (MAP) Pulse Ox O2 Delivery O2 Flow Rate FiO2 05/21/20 04:06 36.6 94 20 79/62 (68) 94 Room Air Capillary Refill : Less Than 3 SecondsLess Than 3 Seconds I&O Intake and Output 05/21/20 00:00 Intake Total 2230 ml Balance 2230 ml Intake Oral 2130 ml IV Total 100 ml # Voids 13 # Bowel Movements 7 General: No Acute Distress Lungs: Clear to Auscultation Heart: Regular Rate Abdomen: Soft (and the tenderness has markedly improved to the lower pelvis) Skin: Other (raised erythema on the left thigh approximately the size of your palm) Results/Procedures Lab Microbiology 05/16/20 Blood Culture - Preliminary, Resulted No growth 05/16/20 Genital Culture - Preliminary, Resulted Staphylococcus aureus Strep agalactiae Group B Neisseria gonorrhoeae 05/16/20 Wet Prep - Final, Resulted 05/16/20 Urine Culture - Final, Complete NO GROWTH Radiology PT STATUS: REG ER : 1995 PHYSICIAN: JABIER SALAZAR MD ADMIT DATE: 05/16/20/ER Signed Date of Exam:05/16/20 CT ABD/PELV W (APPENDICITIS) PROCEDURE: CT abdomen and pelvis with contrast, rule out appendicitis. TECHNIQUE: Multiple contiguous axial images were obtained through the abdomen and pelvis after the administration of intravenous contrast. All CT scans use one or more of the following dose optimizing techniques: automated exposure control, MA and/or KvP adjustment based on patient size and exam type or iterative reconstruction. INDICATION: Abdominal pain. COMPARISON: Correlation is made with prior CT from 02/16/2020. FINDINGS: The lung bases are clear. No discrete liver mass is detected. The gallbladder is unremarkable. No biliary ductal dilatation is seen. The pancreas and spleen are unremarkable. No adrenal mass is detected. Kidneys are unremarkable. Aorta is nonaneurysmal. Small and large bowel loops are normal in caliber. Appendix is visualized in the right lower quadrant. The appendix does not appear to be appreciably thick walled and no periappendiceal inflammation is present. Bladder and uterus are unremarkable. There is 11 mm follicle in the right ovary. No free fluid or fluid collection is seen. IMPRESSION: Essentially unremarkable CT of the abdomen and pelvis. There is no acute feature identified. Specifically, there is no CT evidence of acute appendicitis. Dictated by: Dictated on workstation # [id number] Dict: 05/16/20 1623 Trans: 05/16/20 1659 AS6 [id number] Interpreted by: KYLEE JONES MD Electronically signed by: KYLEE JONES MD 05/16/20 1659 Assessment/Plan Assessment/Plan Assessment & Plan 1. Sepsis -patient currently on IV fluids at 125 mL per hour 05/18 -white blood cell count down this morning to normal range 2. Pelvic inflammatory disease -continue with IV Rocephin and doxycycline today -Cultures at this time are still pending from pelvic In the emergency department -Pain control with ibuprofen. She has fentanyl written but it has been held due to her low her blood pressure. 05/18 -patient on day number 2 of Rocephin and doxycycline IV -Noted surgical consultation 05/19 -test result is negative for chlamydia but positive for gonorrhea -She has been on rocephin but noted DCed yesterday by surgery and switched to Zosyn. 05/20 -patient is back on Rocephin and will take a full 7 days. 05/21 -day 5 Rocephin 3. Methamphetamine use -planning on dc to [facility] treatment in [facility] -I suspect on Friday, May 22 she will [facility] placed at [facility] Clinical Quality Measures DVT/VTE Risk/Contraindication: Risk Factor Score Per Nursin RFS Level Per Nursing on Admit: 2=Moderate DEMARCUS MCKINNEY MD May 21, 2020 07:27
[2020-05-21 08:00] VITALS: BP 94/61
[2020-05-21] MEDS: NICOTINE PATCH REMOVAL TP SCH (08:09)
[2020-05-21] MEDS: NICOTINE 14 MG (NICODERM) PATCH TD SCH (08:38)
[2020-05-21] MEDS: fentaNYL INJECTION 100 MCG/2 ML AMP IV PRN ×2 (08:50→11:20)
[2020-05-21] MEDS: DOXYCYCLINE INJECTION 100 MG in NS (IVPB) 100 ML IV SCH (08:50)
[2020-05-21] MEDS: cefTRIAXone FOR IV USE 1,000 MG in WATER (STERILE) FOR INJECTION 10 ML IV SCH (08:50)
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
[2020-05-21 12:54] VITALS: BP 82/49
[2020-05-21 15:35] VITALS: BP 96/65
[2020-05-21 19:55] VITALS: BP 91/76
[2020-05-21] MEDS: diphenhydrAMINE 25 MG TAB (BENADRYL) PO PRN (21:14)
[2020-05-22 00:41] VITALS: BP 85/47
[2020-05-22 04:16] VITALS: BP 80/48
[2020-05-22 08:00] VITALS: BP 96/65
[2020-05-22] MEDS: cefTRIAXone FOR IV USE 1,000 MG in WATER (STERILE) FOR INJECTION 10 ML IV SCH (08:18)
[2020-05-22] MEDS ORDERED: DOXYCYCLINE 100 MG (VIBRAMYCIN) TABLET PO SCH (09:00)
--- NOTE | 2020-05-22 11:30 | NUR ---
CALLED TO ROOM BY PT. AGITATED AND REQUESTING TO GO AMA. PAPER SIGNED, IV REMOVED.
--- NOTE | 2020-05-22 11:44 | NUR ---
LEFT FLOOR AMA.
--- NOTE | 2020-05-22 11:48 | NUR ---
CM/SS: Visited with pt as per plan for discharge Plan: Undetermined at this time Summary: Pt was asked to sign paperwork to have the drug and alcohol evaluation completed today. Pt did sign the paperwork, however she shares with this worker that she is tired and that she needs to get some rest. She is given the opportunity to rest and reminded that her drug and alcohol assessment will be at 10:30am today. She rest for a little while prior to the assessment. Pt did not sign all of the paperwork, and is asked to initial where she did not sign. Pt agrees. Pt is assisted to call [facility] for her evaluation. Not long after being on the call pt reports she needs a cup of coffee, she is giving some coffee by staff. Not long after, pt reports that she is ready to leave. Pt is given a t-shirt and some flip flops. Shortly thereafter pt leaves the building - leaving AMA. Dr. Rashid is notified of the pt leaving AMA.
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
== END 2020-05-22 11:45 | disposition left against medical advice (07) | DRG 872 ==
LOC: EDUNIT# 13:15 → ER 13:16 → 4TH 19:55
PROVIDERS: ADMIT Family Medicine; ATTEND Family Medicine
DX: A41.9 Sepsis, unspecified organism (principal); N73.0 Acute parametritis and pelvic cellulitis; T76.51XA Adult forced sexual exploitation, suspected, initial encounter; A54.9 Gonococcal infection, unspecified; Z20.828 Contact with and (suspected) exposure to other viral communicable diseases; F15.10 Other stimulant abuse, uncomplicated; N83.201 Unspecified ovarian cyst, right side; F17.210 Nicotine dependence, cigarettes, uncomplicated; F90.9 Attention-deficit hyperactivity disorder, unspecified type; F41.9 Anxiety disorder, unspecified; F32.9 Major depressive disorder, single episode, unspecified; M41.9 Scoliosis, unspecified; G43.909 Migraine, unspecified, not intractable, without status migrainosus; B95.61 Methicillin susceptible Staphylococcus aureus infection as the cause of diseases classified elsewhere; B95.1 Streptococcus, group B, as the cause of diseases classified elsewhere
CPT/HCPCS: 36415; 74177; 80048; 80053; 80306; 81000; 83605; 83615; 83690; 84145; 84703; 85007; 85025; 85027; 86141; 87040; 87070; 87077; 87088; 87185; 87186; 87205; 87210; 87491; 87591; 87635; 96361; 96374; 96375

== ENCOUNTER 2021-07-07 04:20 | Emergency (ER) | payer SELFPAY ==
[~2021-07-07 04:20] MED LIST changes: +CYCL10TA25 PO; -CYCL10TA9 PO
--- NOTE | 2021-07-07 04:52 | ED Abdominal Pain ---
General Chief Complaint: Abdominal/GI Problems Stated Complaint: ABD PAIN Source of Information: Patient Exam Limitations: No Limitations (DYLAN COMBS) History of Present Illness Date Seen by Provider: Jul 07, 2021 Time Seen by Provider: 04:36 Initial Comments Patient to ER by private conveyance from a friend's house where she was visiting today with chief complaint of 1 to 2 days progressively worsening left lower quadrant abdominal pain. She is been having some vaginal discharge for the past couple weeks. She has not got it checked out. She says [facility] and set up a [facility] exam but never completed it. She has not been tested recently for STDs. She would like to be tested today. She has not had any trauma. No fevers or chills but she has had a little nausea and occasional cough. She is a smoker about quarter pack a day. Last use of methamphetamines was 9 days ago. She is staying with a friend in [place] and feels safe there. No other significant medical history. No abdominal surgeries. Last oral intake she was drinking a soda when she came to the ER. Patient states she has had an abscess of her cervix in the past that grew out MRSA. (DYLAN COMBS) Allergies and Home Medications Allergies Coded Allergies: acetaminophen (Verified Adverse Reaction, Mild, 05/18/20) PRURITUS oxycodone (Verified Adverse Reaction, Mild, 05/18/20) PRURITUS Patient Home Medication List Home Medication List Reviewed: Yes (DYLAN COMBS) Unable to Obtain Active Prescriptions or Reported Meds Review of Systems Review of Systems Constitutional: No chills, No fever; malaise EENTM: No Blurred Vision, No Double Vision Respiratory: Cough; Denies Wheezing Cardiovascular: Denies Chest Pain, Denies Lightheadedness Gastrointestinal: Abdominal Pain; Denies Constipated, Denies Diarrhea; Nausea, Poor Fluid Intake; Denies Vomiting Genitourinary: Denies Burning, Denies Discharge Musculoskeletal: No back pain, No joint pain Skin: No pruritus, No rash Psychiatric/Neurological: Denies Anxiety, Denies Depressed (DYLAN COMBS) All Other Systems Reviewed Negative Unless Noted: Yes (DYLAN COMBS) Past Rdpkugl-Scebyu-Hlaxqf Hx Patient Social History Tobacco Use?: Yes Tobacco type used: Cigarettes Smoking Status: Current Everyday Smoker Use of E-Cig and/or Vaping dev: No Substance use?: Yes Substance type: Methamphetamine Alcohol Use?: Yes (DYLAN COMBS) Immunizations Up To Date Tetanus Booster (TDap): Unknown PED Vaccines UTD: Yes (DYLAN COMBS) Seasonal Allergies Seasonal Allergies: No (DYLAN COMBS) Past Medical History Surgeries: Yes (BMT'S) Ear Surgery, Tonsillectomy Respiratory: No Cardiac: No Neurological: Yes (TENSION HEADACHES) Headaches /Migraines Female Reproductive Disorders: Denies Genitourinary: No Gastrointestinal: Yes ("SEPTIC SHOCK FROM SMALL BOWEL OBSTRUCTION" --NO SURGERY) Obstructive Bowel Musculoskeletal: Yes Scoliosis Endocrine: No HEENT: Yes (S/P BMT'S AND TONSILLECTOMY) Chronic Ear Infection, Tonsilitis Cancer: No Psychosocial: Yes ADD/ADHD, Anxiety, Depression Integumentary: No Blood Disorders: No (DYLAN COMBS) Physical Exam Vital Signs Vital Signs - First Documented 07/07/21 04:30 Pulse Ox 96 O2 Delivery Room Air (KAYLYN NI DO) Vital Signs Capillary Refill : (DYLAN COMBS) Height/Weight/BMI Height: '" Weight: lbs. oz. kg; 19.96 BMI Method: General Appearance: moderate distress, thin HEENT: PERRL/EOMI, normal ENT inspection; No pharynx normal (Dry oral mucosa with dental caries) Neck: full range of motion, supple, normal inspection Respiratory: lungs clear, normal breath sounds, no respiratory distress, no accessory muscle use Cardiovascular: normal peripheral pulses, regular rate, rhythm Peripheral Pulses: 2+ Radial Pulses (R), 2+ Radial Pulses (L) Gastrointestinal: normal bowel sounds, non tender, soft Extremities: normal range of motion, non-tender, normal inspection, normal capillary refill Neurologic/Psychiatric: alert, normal mood/affect, oriented x 3 Skin: normal color, warm/dry (DYLAN COMBS) Pelvic: normal external exam, discharge (COPIOUS AMOUNT OF PURULENT DISCHARGE); No lesions; tender w/ cervical motion, tender adnexa (LEFT > RIGHT), tender uterus; No vaginal bleeding; other (CERVIX VERY INFLAMED AND FRIABLE) (KAYLYN NI DO) Focused Exam Sepsis Stage: Ruled Out Possible Source: Genitouriary Lactate Level 07/07/21 04:55: Lactic Acid Level 1.73 (KAYLYN NI DO) Time of Focused Exam: 06:30 Respiratory: Normal Breath Sounds, No Accessory Muscle Use, No Respiratory Distress Cardiovascular: Regular Rate, Rhythm, No Murmur Capillary Refill: Less Than 3 Seconds Skin: normal color, warm/dry Lactic Acid Level Laboratory Tests Test 07/07/21 04:55 Lactic Acid Level 1.73 MMOL/L (0.50-2.00) (KAYLYN NI DO) Within 3hrs of presentation: Admin fluids, Admin ABX, Blood cultures prior to ABX's, Focus exam, Lactate level (KAYLYN NI DO) Progress/Results/Core Measures Results/Orders Lab Results Laboratory Tests Test 07/07/21 00:00 07/07/21 04:55 07/07/21 06:35 Range/Units White Blood Count 11.7 H 4.3-11.0 10^3/uL Red Blood Count 4.74 3.80-5.11 10^6/uL Hemoglobin 14.1 11.5-16.0 g/dL Hematocrit 43 35-52 % Mean Corpuscular Volume 90 80-99 fL Mean Corpuscular Hemoglobin 30 25-34 pg Mean Corpuscular Hemoglobin Concent 33 32-36 g/dL Red Cell Distribution Width 12.9 10.0-14.5 % Platelet Count 290 130-400 10^3/uL Mean Platelet Volume 11.1 9.0-12.2 fL Immature Granulocyte % (Auto) 0 % Neutrophils (%) (Auto) 84 H 42-75 % Lymphocytes (%) (Auto) 11 L 12-44 % Monocytes (%) (Auto) 5 0-12 % Eosinophils (%) (Auto) 1 0-10 % Basophils (%) (Auto) 0 0-10 % Neutrophils # (Auto) 9.8 H 1.8-7.8 10^3/uL Lymphocytes # (Auto) 1.3 1.0-4.0 10^3/uL Monocytes # (Auto) 0.5 0.0-1.0 10^3/uL Eosinophils # (Auto) 0.1 0.0-0.3 10^3/uL Basophils # (Auto) 0.0 0.0-0.1 10^3/uL Immature Granulocyte # (Auto) 0.0 0.0-0.1 10^3/uL Prothrombin Time 13.3 12.2-14.7 SEC INR Comment 1.0 0.8-1.4 Activated Partial Thromboplast Time 38 H 24-35 SEC Sodium Level 138 135-145 MMOL/L Potassium Level 3.9 3.6-5.0 MMOL/L Chloride Level 102 98-107 MMOL/L Carbon Dioxide Level 22 21-32 MMOL/L Anion Gap 14 5-14 MMOL/L Blood Urea Nitrogen 20 H 7-18 MG/DL Creatinine 0.71 0.60-1.30 MG/DL Estimat Glomerular Filtration Rate 100 BUN/Creatinine Ratio 28 Glucose Level 107 H 70-105 MG/DL Lactic Acid Level 1.73 0.50-2.00 MMOL/L Calcium Level 9.7 8.5-10.1 MG/DL Corrected Calcium 9.5 8.5-10.1 MG/DL Total Bilirubin 0.3 0.1-1.0 MG/DL Aspartate Amino Transf (AST/SGOT) 17 5-34 U/L Alanine Aminotransferase (ALT/SGPT) 11 0-55 U/L Alkaline Phosphatase 80 40-136 U/L Total Protein 8.3 H 6.4-8.2 GM/DL Albumin 4.3 3.2-4.5 GM/DL Serum Test, Qualitative NEGATIVE NEGATIVE Serum Alcohol < 10 <10 MG/DL Influenza Type A (RT-PCR) Not Detected Not Detecte Influenza Type B (RT-PCR) Not Detected Not Detecte SARS-CoV-2 RNA (RT-PCR) Not Detected Not Detecte (KAYLYN NI DO) My Orders Orders - KAYLYN NI DO Neisseria Gonorrhea Swab (07/07/21 06:42) Chlam Dna Probe (07/07/21 06:42) Genital Culture (07/07/21 06:42) Wet Prep (07/07/21 06:42) Lauren Prep (07/07/21 06:42) Ed Iv/Invasive Line Start (07/07/21 06:42) Lactated Ringers (Lr 1000 Ml Iv Solution (07/07/21 06:45) Azithromycin Tablet (Zithromax Tablet) (07/07/21 06:45) Ceftriaxone 1 Gm Pre-Mix (Rocephin 1 Gm (07/07/21 06:42) Hepatitis Panel Acute (07/07/21 06:49) Hiv 1&2 Antibody (07/07/21 06:49) Syphilis Antibody Screen (07/07/21 06:52) (KAYLYN NI DO) Medications Given in ED Current Medications Medications Dose Ordered Sig/Aldo Route Start Time Stop Time Status Last Admin Dose Admin Diphenhydramine HCl 25 mg ONCE ONCE IVP 07/07/21 06:00 07/07/21 06:01 DC 07/07/21 06:05 25 MG Ketorolac Tromethamine 30 mg ONCE ONCE IVP 07/07/21 05:30 07/07/21 05:31 DC 07/07/21 05:46 30 MG Lactated Ringer's 1,000 ml @ 0 mls/hr Q0M ONCE IV 07/07/21 05:00 07/07/21 05:01 DC 07/07/21 05:05 1,000 MLS/HR Ondansetron HCl 4 mg PRN PRN IV 07/07/21 05:00 07/07/21 05:11 DC 07/07/21 05:05 4 MG Vancomycin HCl 1000 mg/Sodium Chloride 250 ml @ 250 mls/hr ONCE ONCE IV 07/07/21 05:00 07/07/21 05:59 DC 07/07/21 05:46 250 MLS/HR (KAYLYN NI DO) Vital Signs/I&O 07/07/21 04:30 Pulse Ox 96 O2 Delivery Room Air (KAYLYN NI DO) Progress Progress Note #1: Time: 04:56 Progress Note Plan a pelvic exam with swabs for gonorrhea chlamydia blood syphilis, hCG. Septic work-up based on her tachycardia tachypnea and gynecologic origin suspect pelvic inflammatory disease. 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 She does not want any narcotics so if her is negative we can treat her with some Toradol. Zofran for nausea. A liter of fluids would be greater than 20 mL/kg. Ultras ound not available now so we get a CT of her abdomen pelvis. Her cough is likely related to her smoking however we will grab a Covid and influenza swab since she is highly likely to need admission. Progress Note #2: Time: 06:09 Progress Note Patient requesting a female staff do her pelvic. Care of the patient has been transferred to Dr. Ni. (DYLAN COMBS) Progress Note : Progress Note 181--ASSUMED CARE OF PATIENT AT SHIFT CHANGE, CT IS PENDING, WILL ALSO DO PELVIC EXAM. (KAYLYN NI DO) Diagnostic Imaging Diagonstic Imaging: Xray Plain Films/CT/US/NM/MRI: chest Reviewed: Reviewed by Me (DYLAN COMBS) Comments CT ABDOMEN/PELVIS--PER RADIOLOGIST REPORT AT 0654 FINDINGS: Minimal right basilar groundglass opacities. The liver is unremarkable. The spleen is unremarkable. The adrenal glands are unremarkable. The pancreas is unremarkable. The gallbladder is unremarkable. The kidneys are unremarkable. No aneurysmal dilatation of the abdominal aorta. The appendix is unremarkable. The urinary bladder is unremarkable. The uterus and adnexal regions are unremarkable for age. Loops of small bowel within the left abdomen are at the upper limits of normal in size measuring right at 3 cm, though there is no focal transition point. The small bowel is fluid-filled as is the proximal colon. The stomach is distended with fluid. No significant adenopathy, free air, or free fluid within the abdomen or pelvis. Grade 1 anterolisthesis of L5 on S1. 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 No acute osseous abnormality. IMPRESSION: Fluid-filled loops of small bowel within the upper limits of normal in size, likely related to underlying enteritis. No evidence of bowel obstruction. Mild right basilar atelectasis and/or infiltrate. Additional findings as above. CXR--PER RADIOLOGIST REPORT Reviewed: Reviewed by Me (KAYLYN NI DO) Departure Impression Primary Impression: PID (acute pelvic inflammatory disease) Additional Impressions: Methamphetamine abuse Dehydration SUSPECTED STD Disposition: 01 HOME, SELF-CARE Condition: Stable Departure-Patient Inst. Decision time for Depature: 06:56 (KAYLYN NI DO) Referrals: NO,LOCAL PHYSICIAN (PCP) Primary Care Physician [facility] CAMILA LOPEZ Patient Instructions: Chlamydia and Gonorrhea, Drug Abuse and Drug Addiction (DC), Pelvic Inflammatory Disease ED, STD Prevention Add. Discharge Instructions: NO INTERCOURSE OF ANY KIND UNTIL YOU ARE RECHECKED AND CLEARED BY TYLENOL 1 GRAM PLUS MOTRIN 800 MG 4 TIMES A DAY NEEDED FOR PAIN OR FEVER [facility]--CALL IN THE MORNING TO SCHEDULE APPOINTMENT All discharge instructions reviewed with patient and/or family. Voiced understanding. Scripts Metronidazole (Metronidazole) 500 Mg Tablet 500 MG PO QID, #40 TAB 0 Refills Prov: KAYLYN NI DO 07/07/21 Doxycycline Hyclate (Doxycycline Hyclate) 100 Mg Tablet 100 MG PO BID, #20 TAB 0 Refills Prov: KAYLYN NI DO 07/07/21 DYLAN COMBS Jul 07, 2021 04:52 KAYLYN NI DO Jul 07, 2021 06:22
[2021-07-07] MEDS ORDERED: VANCOMYCIN INJECTION 1,000 MG in NS (IVPB) 250 ML IV ONE (05:00)
[2021-07-07] MEDS ORDERED: ONDANSETRON 4 MG/2 ML (SDV) Z0FRAN IV PRN (05:00)
[2021-07-07] MEDS ORDERED: LACTATED RINGERS 1,000 ML IV ONE ×2 (05:00→06:45)
[2021-07-07] MEDS ORDERED: PIPERACILLIN SODIUM/TAZOBACTAM 4.5 GM in NS (IVPB) 100 ML IV ONE (05:00)
[2021-07-07 05:07] LABS: BASOPHILS % (AUTO) 0 % (0-10); EOSINOPHILS # (AUTO) 0.1 10^3/uL (0.0-0.3); EOSINOPHILS % (AUTO) 1 % (0-10); HEMATOCRIT 43 % (35-52); HEMOGLOBIN 14.1 g/dL (11.5-16.0); LYMPHOCYTES # (AUTO) 1.3 10^3/uL (1.0-4.0); LYMPHOCYTES % (AUTO) 11 % (12-44); MEAN CORPUSCULAR HEMOGLOBIN 30 pg (25-34); MEAN CORPUSCULAR HGB CONC 33 g/dL (32-36); MEAN CORPUSCULAR VOLUME 90 fL (80-99); MEAN PLATELET VOLUME 11.1 fL (9.0-12.2); MONOCYTES # (AUTO) 0.5 10^3/uL (0.0-1.0); MONOCYTES % (AUTO) 5 % (0-12); NEUTROPHILS # (AUTO) 9.8 10^3/uL (1.8-7.8); NEUTROPHILS % (AUTO) 84 % (42-75); PLATELET COUNT 290 10^3/uL (130-400); WHITE BLOOD COUNT 11.7 10^3/uL (4.3-11.0)
[2021-07-07 05:22] LABS: ALBUMIN 4.3 GM/DL (3.2-4.5); CHLORIDE 102 MMOL/L (98-107); POTASSIUM 3.9 MMOL/L (3.6-5.0); PROTHROMBIN TIME PATIENT 13.3 SEC (12.2-14.7); SODIUM 138 MMOL/L (135-145)
[2021-07-07 05:24] LABS: CALCIUM 9.7 MG/DL (8.5-10.1)
[2021-07-07 05:25] LABS: GLUCOSE 107 MG/DL (70-105); TOTAL PROTEIN 8.3 GM/DL (6.4-8.2)
[2021-07-07 05:26] LABS: CARBON DIOXIDE 22 MMOL/L (21-32)
[2021-07-07 05:27] LABS: BILIRUBIN,TOTAL 0.3 MG/DL (0.1-1.0)
[2021-07-07 05:28] LABS: ALKALINE PHOSPHATASE 80 U/L (40-136)
[2021-07-07 05:29] LABS: CREATININE SERUM 0.71 MG/DL (0.60-1.30); GFR ESTIMATED 100
[2021-07-07 05:30] LABS: BUN/CREATININE RATIO 28
[2021-07-07] MEDS ORDERED: KETOROLAC 30 MG/ML VIAL IVP ONE (05:30)
[2021-07-07 05:31] LABS: ALANINE AMINOTRANSFERASE 11 U/L (0-55)
[2021-07-07] MEDS ORDERED: diphenhydrAMINE 50 MG/ML INJ (BENADRYL) IVP ONE (06:00)
[2021-07-07] MEDS ORDERED: cefTRIAXone 1 GM PRE-MIX 50 ML IV STA (06:42)
[2021-07-07] MEDS ORDERED: AZITHROMYCIN 250 MG TAB (ZITHROMAX) PO ONE (06:45)
--- NOTE | 2021-07-07 06:50 | Diagnostic Imaging Report ---
PROCEDURE: CT abdomen and pelvis with contrast. TECHNIQUE: Multiple contiguous axial images were obtained through the abdomen and pelvis after administration of intravenous contrast. Auto Exposure Controls were utilized during the CT exam to meet ALARA standards for radiation dose reduction. All CT scans use one or more of the following dose optimizing techniques: automated exposure control, MA and/or KvP adjustment based on patient size and exam type or iterative reconstruction. INDICATION: Left lower quadrant pain COMPARISON: 05/16/2020 FINDINGS: Minimal right basilar groundglass opacities. The liver is unremarkable. The spleen is unremarkable. The adrenal glands are unremarkable. The pancreas is unremarkable. The gallbladder is unremarkable. The kidneys are unremarkable. No aneurysmal dilatation of the abdominal aorta. The appendix is unremarkable. The urinary bladder is unremarkable. The uterus and adnexal regions are unremarkable for age. Loops of small bowel within the left abdomen are at the upper limits of normal in size measuring right at 3 cm, though there is no focal transition point. The small bowel is fluid-filled as is the proximal colon. The stomach is distended with fluid. No significant adenopathy, free air, or free fluid within the abdomen or pelvis. Grade 1 anterolisthesis of L5 on S1. 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 No acute osseous abnormality. IMPRESSION: Fluid-filled loops of small bowel within the upper limits of normal in size, likely related to underlying enteritis. No evidence of bowel obstruction. Mild right basilar atelectasis and/or infiltrate. Additional findings as above. Dictated by: Dictated on workstation # [id number]
--- NOTE | 2021-07-07 06:51 | Diagnostic Imaging Report ---
INDICATION: Sepsis COMPARISON: None available. TECHNIQUE: Single frontal radiograph of the chest dated 07/07/2021. FINDINGS: The cardiac silhouette is within normal limits in size. No significant pulmonary vascular congestion. The lungs are clear. No pleural effusion. No pneumothorax. No acute osseous abnormality. IMPRESSION: No acute cardiopulmonary abnormality. Dictated by: Dictated on workstation # [id number]
[2021-07-07] MEDS ORDERED: DOXY100T2 PO (06:58)
[2021-07-07] MEDS ORDERED: METR-145 PO (06:58)
[2021-07-07 07:33] LABS: BILIRUBIN,URINE NEGATIVE (NEGATIVE); CLARITY,URINE CLEAR; COLOR,URINE YELLOW; GLUCOSE, URINE (UA) NEGATIVE (NEGATIVE); KETONES,URINE 1+ (NEGATIVE); LEUKOCYTE ESTERASE ,URINE NEGATIVE (NEGATIVE); NITRITE,URINE NEGATIVE (NEGATIVE); PH,URINE 7.5 (5-9); PROTEIN,URINE NEGATIVE (NEGATIVE)
[2021-07-07 07:41] LABS: BACTERIA,URINE NEGATIVE /HPF; SQUAMOUS EPITHELIAL CELL,UR RARE /HPF; WBC,URINE 0-2 /HPF
[2021-07-07 07:55] LABS: BENZODIAZEPINES SCREEN URINE POSITIVE (NEGATIVE); COCAINE SCREEN URINE NEGATIVE (NEGATIVE)
[2021-07-07 07:56] LABS: AMPHETAMINE SCREEN, URINE POSITIVE (NEGATIVE); BARBITURATE SCREEN URINE NEGATIVE (NEGATIVE); CANNABINOID SCREEN, URINE NEGATIVE (NEGATIVE); METHADONE STAT NEGATIVE (NEGATIVE); METHAMPHETAMINE SCREEN URINE S POSITIVE (NEGATIVE); OPIATE SCREEN URINE NEGATIVE (NEGATIVE); OXYCODONE STAT NEGATIVE (NEGATIVE); PROPOXYPHENE STAT NEGATIVE (NEGATIVE); TRICYCLIC ANTIDEPRESSANTS SCRE NEGATIVE (NEGATIVE)
[2021-07-07] MEDS ORDERED: PIPERACILLIN SODIUM/TAZOBACTAM 4.5 GM in NS (IVPB) 100 ML IV NR (08:30)
[2021-07-07 09:24] VITALS: BP 98/61
[2021-07-09 13:10] LABS: HEPATITIS C ANTIBODY C Non-Reactive (Non-Reactive)
== END 2021-07-07 09:24 | disposition home or self-care (01) ==
LOC: EDUNIT# 04:20 → ER 04:24
DX: N73.0 Acute parametritis and pelvic cellulitis (principal); F15.10 Other stimulant abuse, uncomplicated; E86.0 Dehydration; F17.210 Nicotine dependence, cigarettes, uncomplicated; Z20.822 Contact with and (suspected) exposure to COVID-19
CPT/HCPCS: 71045; 74177; 80053; 80074; 80306; 81000; 83605; 84703 ×2; 85025; 85610; 85730; 86703; 86780; 87040; 87070; 87088; 87205; 87210; 87491; 87591; 87636; 99284; G0480; 36415; 80320